=== PATIENT | female | born 1950 | race Caucasian/White ===

== ENCOUNTER 2016-06-04 09:32 | Inpatient (IN) | payer MEDICARE, MEDICAID ==
[~2016-06-04] VITALS: Ht 167.6 cm; Wt 87.6 kg
[2016-06-04] VITALS (10 sets, daily range): BP systolic 70–149; BP diastolic 43–74; PULSE 55–78; RESP 14–20; O2SAT 96–100
[~2016-06-04 09:32] MED LIST: ERYT1OIN7 LEFT_EYE
--- NOTE | 2016-06-04 09:38 | ED.REPORT ---
HPI-Stroke / CVA Jun 04, 2016 ED Provider: Dr. Kevin Damian M.D. A 66 year old female with a history including intellectual disability, hypertension, tremors, and many psychiatric disorders presents to the ED with intermittent slurred speech onset earlier this week and worsening this morning. Her caretakers checked on her at 0730 this morning and no deficits were noted but she was not ready to get up so the encounter was brief. When they returned to wake her up at 0815 they noticed her speech was slurred. EMS found her with a blood sugar of 130 but otherwise normal vital signs and no focal deficits. However, en route she developed right arm weakness. Her caretakers also report urinary and bowel incontinence, increased weakness, and several ground-level falls - most recently last night. She was placed on Keflex 8 days ago. The patient denies nausea, shortness of breath, cough, or vomiting. She is a poor historian. Nursing Notes Stated Complaint: SLURRED SPEECH Chief Complaint: Neuro Symptoms/ Deficits Nursing Notes Reviewed: Yes Allergies: Coded Allergies: Penicillins (Unverified Allergy, Severe, 03/18/09) risperidone (Unverified Allergy, Severe, 03/18/09) Scheduled Ascorbic Acid (Vitamin C) 1,000 Mg Tab.chew 1,000 MG PO DAILY (Reported) Benztropine Mesylate (Benztropine Mesylate) 2 Mg Tablet 2 MG PO BID (Reported) Cephalexin (Keflex) 500 Mg Capsule 500 MG PO QID (Reported) Cholecalciferol (Vitamin D3) (Vitamin D) 1,000 Unit Tablet 2,000 UNIT PO DAILY ( Reported) Docusate Sodium (Colace) 100 Mg Capsule 100 MG PO BID (Reported) Erythromycin Ophth Oint (Erythromycin Ophth Oint) 3.5 Gm Oint...g. 1 APPL LEFT_ EYE QID use for 7 days, apply to other eye if it gets red and mattered Ezetimibe (Zetia) 10 Mg Tablet 10 MG PO DAILY (Reported) Levothyroxine (Levothyroxine) 50 Mcg Tablet 50 MCG PO DAILY (Reported) Lisinopril / HCTZ 10-12.5 mg (Lisinopril / HCTZ 10-12.5 mg) 1 Each Tablet 1 EACH PO DAILY (Reported) Loratadine (Claritin) 10 Mg Capsule 10 MG PO DAILY (Reported) Multivitamin (Multi Vitamin Daily) 1 Each Tablet 1 EACH PO DAILY (Reported) Propranolol ER (Propranolol ER) 120 Mg Cap.sa.24h 120 MG PO DAILY (Reported) Quetiapine Fumarate (Quetiapine Fumarate) 400 Mg Tablet 400 MG PO HS (Reported) Simvastatin (Simvastatin) 40 Mg Tablet 40 MG PO HS (Reported) Ziprasidone (Ziprasidone) 60 Mg Capsule 120 MG PO DAILY (Reported) Ziprasidone (Ziprasidone) 80 Mg Capsule 80 MG PO BID (Reported) Scheduled PRN Acetaminophen (Acetaminophen) 500 Mg Tablet 1,000 MG PO Q4H PRN PRN For Fever ( Reported) Magnesium Hydroxide (Milk of Magnesia) 2,400 Mg/10 Ml Oral.susp 2,400 MG PO TID PRN PRN For Constipation (Reported) Miscellaneous Medications Polyethylene Glycol 3350 (Miralax) 17 Gm Powd.pack 17 GM PO (Reported) General Time Seen by Provider: 09:37 Chief Complaint Slurred speech Hx Obtained From: Patient, Irrigation Equipment Installer, EMS Unable to Obtain Hx: Mental status Arrived By: Ambulance Time last known well Unknown Sudden in Onset?: Yes Symptom Duration: Intermittent Progression Since Onset: Intermittent Severity: Current: No pain currently Severity: Maximum: No pain Associated with: Reports: Bladder dysfunction, Bowel dysfunction Pertinent Negative: Relieved by nothing Context: Immunizations Unknown Recent Healthcare: No recent doctor visit Similar Sx Previous: No Risk Factors Entirely unclear as to the onset of these symptoms and the symptomatology is not clearly consistent with acute CVA though further CVA workup may be indicated. For this reason I do not believe TPA is indicated. )( TPA Administration/Criteria Stroke Thrombolytic Therapy : TPA Considered: Yes TPA Administered Intravenously: No, not indicated NIH Stroke Scale Level of Consciousness: Alert and responsive (0) Ask Month & Age: 1 question right (1) Horizontal EO Movements: None (0) Visual Yi: No visual loss (0) Facial Palsy: Normal symmetry (0) Right Arm Motor Drift (10s): Drift, not touch bed (1) Left Arm Motor Drift (10s): Drift, not touch bed (1) Right Leg Motor Drift (5s): Some effort v gravity (2) Left Leg Motor Drift (5s): Some effort v gravity (2) Sensation (Arms/Legs/Face): No sensory loss (0) Language Aphasia: Severe, fragmented (2) Dysarthria: Slurring intelligible (1) Extinction/Inattention: No exctinct/inattent (0) NIHSS Score: 10 Time NIHSS Performed: 09:45 Date NIHSS Performed: Jun 04, 2016 Past Medical History Past Medical History Intellectual disability Hypertension Schizophrenia Impulse control disorder Tremors Hyperlipidemia Depression Hormone replacement therapy Anxiety disorder Hypothyroidism Idiopathic scoliosis Hx UTI Past Surgical History None reported Smoking History Unknown if Ever Smoker Social History Lives in private residence with skilled attendants 24/7 Ambulatory Status Independent Review of Systems Constitutional: Denies: Fever Respiratory: Denies: Non-productive cough, Shortness of breath GI: Denies: Nausea, Vomiting Neurologic: Reports: Bladder dysfunction, Bowel dysfunction, Slurred speech, Weakness Complete sys rev & neg: except as marked. Physical Exam Initial Vital Signs Vital Signs (First) Date Time Temp Pulse Resp B/P Pulse Ox O2 Delivery O2 Flow Rate FiO2 06/04/16 09:34 Room Air 06/04/16 10:13 34.4 59 17 90/61 96 Initial VS: Reviewed ENT: Conjunctiva normal, No scleral icterus Abdomen / GI: Soft, Non-tender Skin: Warm, Dry General/Constitutional: Awake, Alert Head / Eyes: Atraumatic, Normocephalic Neck: Supple, Full range of motion Respiratory / Chest: Breath sounds NL, Breath sounds = bilat, No respiratory distress Unremarkable breast exam - skin looks normal with no lumps on palpation Cardiovascular: Heart rate NL, Regular rhythm, Heart sounds NL Neurologic: No sensory deficits Speech: Positive: Slurred Sensory Deficit: Positive: Lower extremity bilat, Upper extremity bilat Lower Extremity / Pelvis / MS: Inspection NL, Full range of motion, Neurologic intact, Vascular intact Lower Ext Brief Normals: Hip R exam normal, Hip L exam normal Interpretation & Diagnostics Lab Results Interpretation Result Diagram: 06/04/16 0935 06/04/16 0935 Test 06/04/16 09:35 06/04/16 10:15 White Blood Count 7.3th/mm3 (3.8-10.1) Red Blood Count 4.56mil/mm3 (3.90-5.20) Hemoglobin 13.9g/dL (12.0-15.6) Hematocrit 42.2% (35.0-46.0) Mean Corpuscular Volume 92.5fL (81-100) Mean Corpuscular Hemoglobin 30.5pg (27.0-35.0) Mean Corpuscular Hemoglobin Concent 32.9% (32.0-37.0) Red Cell Distribution Width 14.3% (12.3-15.4) Platelet Count 138bil/L (150-400) Neutrophils (%) (Auto) 68.8% (40-74) Lymphocytes (%) (Auto) 18.3% (14-46) Monocytes (%) (Auto) 10.0% (4-12) Eosinophils (%) (Auto) 2.5% (0-5) Basophils (%) (Auto) 0.3% (0-3) Prothrombin Time 11.2sec (8.1-12.5) Prothromb Time International Ratio 1.05ratio Sodium Level 143mEq/L (134-144) Potassium Level 4.2mEq/L (3.5-5.2) Chloride Level 101mEq/L (97-108) Carbon Dioxide Level 30mmol/L (18-29) Blood Urea Nitrogen 21mg/dL (8-27) Creatinine 1.04mg/dL (0.57-1.00) Estimat Glomerular Filtration Rate 76mL/min (>59) Glucose Level 149mg/dL (60-99) Calcium Level 9.9mg/dL (8.5-10.1) Total Bilirubin 0.3mg/dL (0.0-1.2) Aspartate Amino Transf (AST/SGOT) 87U/L (0-50) Alanine Aminotransferase (ALT/SGPT) 86U/L (0-32) Alkaline Phosphatase 104U/L (25-165) Troponin T < 0.010ug/L (0.0-0.011) Total Protein 7.5g/dL (6.4-8.4) Albumin 3.7g/dL (3.4-5.0) Thyroid Stimulating Hormone (TSH) 4.720uIU/mL (0.450-4.500) Free Thyroxine 1.43ng/dL (0.82-1.77) Urine Color Yellow (YELLOW) Urine Appearance Hazy (CLEAR,HAZY) Urine pH 6.5 (5.0-8.0) Urine Specific Valier 1.015 (1.003-1.035) Urine Protein Negativemg/dL (NEG,TRACE) Urine Glucose (UA) Negativemg/dL (NEGATIVE) Urine Ketones Tracemg/dL (NEGATIVE) Urine Occult Blood Negative (NEGATIVE) Urine Nitrite Negative (NEGATIVE) Urine Bilirubin Negative (NEGATIVE) Urine Urobilinogen Normalmg/dL (NORMAL) Urine Leukocyte Esterase Trace (NEGATIVE) Urine RBC 0-2/hpf (0-2) Urine WBC 6-10/hpf (0-5) Urine Epithelial Cells Occasional/hpf (NONE-MOD) Urine Crystals None seen (NONE SEEN) Urine Bacteria Few/hpf (NONE-FEW) Urine Hyaline Casts Occasional/lpf (NONE) Urine Granular Casts None seen (NONE SEEN) Urine Waxy Casts None seen (NONE SEEN) Urine Red Blood Cell Casts None seen (NONE SEEN) Urine White Blood Cell Casts None seen (NONE SEEN) Urine Mucus None seen (None Seen) Urine Trichomonas None seen (NONE SEEN) Urine Yeast None (NONE SEEN) Urinalysis Comment None Urine Culture Reflexed Indicated ECG Interpretation ECG Interpretation: Sinus rhythm rate 59 Probable left ventricular hypertrophy Time: 10:26 Interpreted by: ED physician CT Head Interpretation IMPRESSION: 1. No acute intracranial disease process. 2. Findings telephoned to Dr. Kevin Damian on 06/04/2016 at 0952 hours. This study fulfills neurological imaging criteria for inclusion or exclusion of acute stroke therapies based on available published neurological guidelines. Dictated by: Lynn Friedman MD, PhD on 06/04/2016 at 9:55 Study: Head CT no contrast Interpretation / Wet Read by: Interpret - Radiologist Re-Eval/Medical Decision Source of Hx: Old records Re-Evaluation/Progress #1: Time of Eval: 10:30 Patient Status: Condition unchanged Re-Evaluation/Progress Note: Patient rechecked. Re-Evaluation/Progress #2: Time of Eval: 11:31 Patient Status: Condition improved Re-Evaluation/Progress Note: Discussed with patient's caretakers CT and lab results, diagnosis, and plan for admit. Patient and her caretakers agree with plan for care and all questions were addressed. Consultation : Referral / Consult Name: Reuben Felder MD Consulted With: Hospitalist Call Returned at: 12:03 Steward/Stewardess Economy Class: Agrees with eval, Agrees with plan, Accepts admit Counseled Regarding: Diagnosis, Lab results, Need for admission Patient Discharge & Departure Impression: Primary Impression: CVA (cerebral vascular accident) Additional Impression: Hypothermia Encounter type: initial encounter Qualified Code: T68.XXXA - Hypothermia, initial encounter Disposition: ADMITTED TO HOSPITAL Discharge Condition All VS Reviewed: Yes Condition: Stable Referrals: Bradly Shafer MD (PCP) Scribe Attestation Portions of this note were transcribed by Lynnette Hollingsworth. I, Dr. Damian, personally performed the history, physical exam, and medical decision-making; I reviewed and confirmed the accuracy of the information in the transcribed note. Signed by: Abundio Robles, 06/04/2016, 12:19 copies to: Bradly Shafer MD, Kirk H MD Jun 04, 2016 09:38 LYNNETTE HOLLINGSWORTH Jun 04, 2016 10:03
[2016-06-04 09:53] LABS: BASOPHILS % (AUTO) 0.3 % (0-3); EOSINOPHILS % (AUTO) 2.5 % (0-5); Mean Corpuscular Hemoglobin 30.5 pg (27.0-35.0); Mean Corpuscular Volume 92.5 fL (81-100); NEUTROPHILS % (AUTO) 68.8 % (40-74); Platelet Count 138 bil/L (150-400)
--- NOTE | 2016-06-04 09:57 | DRSVH ---
PROCEDURE: CT BRAIN (TPA) ([id number]) INDICATIONS: slurred speech TECHNIQUE: Noncontrast 4.5 mm thick angled axial sections acquired from the foramen magnum to the vertex, with c oronal reformats. COMPARISON: None. FINDINGS: Image quality: Excellent. CSF spaces: Basal cisterns are patent. No extra-axial fluid collections. The ventricles are symmet juan manuel in size and shape. Brain: No intracranial bleeds or masses. There is cerebral volume loss for age, with resultant vent ricular and sulcal prominence. There are periventricular and deep white matter chronic small vessel ischemic changes. There is intracranial internal carotid artery atherosclerosis. Skull and face: Calvarium and visualized facial bones appear intact, without suspicious lesions. Sinuses: Visualized sinuses and mastoids are clear. IMPRESSION: 1. No acute intracranial disease process. 2. Findings telephoned to Dr. Kevin Damian on 06/04/2016 at 0952 hours. This study fulfills neurological imaging criteria for inclusion or exclusion of acute stroke therapie s based on available published neurological guidelines. Dictated by: Lynn Friedman MD, PhD on 06/04/2016 at 9:55 Approved by: Lynn Friedman MD, PhD on 06/04/2016 at 9:55
[2016-06-04 10:02] LABS: INR 1.05 ratio
[2016-06-04 10:40] LABS: TROPONIN T < 0.010 ug/L (0.0-0.011)
[2016-06-04 10:52] LABS: APPEARANCE,URINE HAZY (CLEAR,HAZY); COLOR,URINE YELLOW (YELLOW); OCCULT BLOOD,URINE NEGATIVE (NEGATIVE); PH,URINE 6.5 (5.0-8.0); UROBILINOGEN,URINE NORMAL (NORMAL)
[2016-06-04] MEDS ORDERED: QUET400T35 PO (11:19)
[2016-06-04] MEDS ORDERED: MULT-1018 PO (11:19)
[2016-06-04] MEDS ORDERED: LORA10CA PO (11:19)
[2016-06-04] MEDS ORDERED: POLY17PO6 PO (11:19)
[2016-06-04] MEDS ORDERED: LEVO50TA6 PO (11:19)
[2016-06-04] MEDS ORDERED: LISI1TAB7 PO (11:19)
[2016-06-04] MEDS ORDERED: SIMV40TA5 PO (11:19)
[2016-06-04] MEDS ORDERED: CHOL100043 PO (11:24)
[2016-06-04] MEDS ORDERED: ASCO100089 PO (11:24)
[2016-06-04] MEDS ORDERED: DOCU-41 PO (11:24)
[2016-06-04] MEDS ORDERED: EZET10TA PO (11:24)
[2016-06-04] MEDS ORDERED: ZIPR60CA18 PO (11:24)
[2016-06-04] MEDS ORDERED: ZIPR80CA22 PO (11:24)
[2016-06-04] MEDS ORDERED: ACET-171 PO (11:25)
[2016-06-04] MEDS ORDERED: PROP120C2 PO (11:25)
[2016-06-04] MEDS ORDERED: MAGN800O PO (11:27)
[2016-06-04] MEDS ORDERED: BENZ2TAB7 PO (11:27)
--- NOTE | 2016-06-04 11:59 | NUR ---
Admit nurse: Pt brought to ED by home caregivers, admission information/medication list provided by caregivers. Pt has slurred/mumbled speech, has reported hx of multiple disabilities, appears to have some neuro delays. Admit completed, med rec completed, allergy sticker in place. Flu shot received fall 2015.
[2016-06-04] MEDS ORDERED: Ondansetron 2 mg/mL 2 mL Inj IVPUSH PRN ×2 (12:20→12:50)
[2016-06-04] MEDS ORDERED: Alum-Mag Hydrox-Simeth 30 mL Suspension PO PRN ×2 (12:20→12:50)
--- NOTE | 2016-06-04 12:33 | NUR ---
Evaluation completed. Please go to "Notes" then click on "Assessments and Notes" (bottom left corner of screen). Then select appropriate discipline tab on top of screen.
[2016-06-04] MEDS ORDERED: CEPH-512 PO (12:57)
--- NOTE | 2016-06-04 13:02 | NUR ---
admit pt is admitted from the ER for hypothermia and slurred speech. pt is transferred into bed by three hospital staff. pt denies pain or discomfort. caregivers tell me that she was found this am to have slurred speech after having two separate falls the day before. caregivers answered the admit questions for this RN. pt has some redness on her left foot that the caregivers state wasn't there earlier today. tele is started and med rec done. waiting on doctor's orders.
--- NOTE | 2016-06-04 13:08 | NUR ---
sexually inappropriate caregivers tell this RN that the pt can be inappropriate with male caregivers. "Mostly verbal but occasionally grabs caregivers"
--- NOTE | 2016-06-04 15:01 | NUR ---
MRI\ pt off the floor for MRI nail technician teacher reports pt is crying every time they attempt to put her into the machine. Tech will notify this RN if interventions are needed.
--- NOTE | 2016-06-04 16:01 | NUR ---
imaging results Bel (caregiver) would like to know the results of any imaging study. # [phone]
[2016-06-04] MEDS: Erythromycin 0.5% 3.5 Gm Ophthalmic Ointment LEFT_EYE SCH ×2 (16:24→21:34)
--- NOTE | 2016-06-04 16:27 | DRSVH ---
PROCEDURE: MRI STROKE PROTOCOL ([id number]) Pre- and post-contrast brain MRI, non-contrast brain MR angiogram, pre- and postcontrast neck MR sarah ogram INDICATIONS: Slurred speech, TIA/Stroke TECHNIQUE: Brain: Noncontrast axial T1 spin echo, axial T2 fast spin echo, sagittal and axial FLAIR, coronal T2 fast spin echo, axial gradient echo, axial diffusion and ADC through the brain. After the administr ation of contrast, axial 3D VIBE of the cranial vasculature and brain. Brain MRA: Non-contrast 3-D time of flight MR angiogram, with multiple qqdgres-ujzhfqqsu-mojxxpldrv (MIP) reformats performed. Neck MRA: Axial and sagittal TruFISP through the neck. Coronal dynamic MR angiogram during administ ration of contrast in the arterial and venous phases, with 3-dimenstional akbfhzz-wjkswufrw-msilhterc n (MIP) reformats constructed from subtraction images. COMPARISON: None. FINDINGS: Image quality: Limited by patient motion artifact BRAIN: CSF spaces: Ventricles are normal in shape. Mild, diffuse prominence of CSF space noted. Basal cist erns are patent. No extra-axial fluid collections. Brain: No intracranial bleeds or mass effects. Ramos-white matter interface is normal. Diffusion we ighted images show no acute ischemic insults. Scattered, punctate foci of increased T2/flair signal n oted in the periventricular and subcortical white matter tracts compatible with mild chronic microvas cular ischemic changes. Brainstem appears normal. Normal intravascular flow voids are present. No a bnormal intracranial enhancement. There is normal contrast enhancement of the dural sinuses. Skull and face: Calvarial marrow signal is normal. Orbits appear normal. Sinuses: Sinuses and mastoids are clear. BRAIN MR ANGIOGRAM: Anterior circulation: Intracranial internal carotid arteries are normal in size and enhancement. Th e flow within the paired anterior cerebral arteries is normal and symmetric. The flow within the mid dle cerebral arteries is normal and symmetric. The anterior communicating artery is seen. No stenos es, occlusions, or aneurysms. Posterior circulation: The visualized portions of the vertebral arteries demonstrate normal caliber, and join to form a normal appearing basilar artery. The flow within the posterior cerebral arteries is normal and symmetric. Posterior cerebral arteries have origins which is congenital anatomic variant. No stenoses, occlusions, or aneurysms. NECK MR ANGIOGRAM: Carotids: Great vessels demonstrate a conventional anatomy as they arise from the aortic arch. The origins of the common carotid arteries appear patent. The calibers and courses of both common caroti d arteries are normal. Minimal atherosclerotic irregularity noted in the proximal internal carotid ar teries bilaterally. Posterior circulation: Origins of the vertebral arteries are poorly visualized due to motion artifact . The source images suggest the origins of the vertebral arteries are patent without significant athe rosclerotic stenosis. More superior portions of both vertebral arteries demonstrate normal course and caliber, and join to form a normal appearing basilar artery. Miscellaneous: Subclavian arteries appear patent. Pre-contrast images through the neck show no soft tissue abnormalities. IMPRESSION: BRAIN MRI: 1. No acute intracranial disease process. 2. No areas of acute or chronic infarction. 3. Mild, diffuse volume loss. 4. Mild periventricular and subcortical white matter chronic microvascular ischemic changes. 5. Image quality by patient motion artifact. BRAIN MR ANGIOGRAM: 1. No hemodynamically significant intracranial vascular stenosis or intracranial vascular occlusion. 2. Image quality limited by patient motion artifact. NECK MR ANGIOGRAM: 1. Less than 50% stenosis of the proximal internal carotid arteries bilaterally. 2. Origins of the vertebral arteries poorly visualized secondary to artifact. Origins of the arteries appear grossly patent on the source images. The estimate of stenosis included in the report of the imaging study was calculated using the NASCET method Dictated by: Lynn Friedman MD, PhD on 06/04/2016 at 16:26 Approved by: Lynn Friedman MD, PhD on 06/04/2016 at 16:26
--- NOTE | 2016-06-04 17:28 | PCM.HPMED ---
Subjective Date of Service Jun 04, 2016 Primary Provider: Admitting Physician: Reuben Felder MD Primary Care Physician: Bradly Shafer MD Attending Physician: Reuben Felder MD Chief Complaint: Slurred speech History of Present Illness: Patient is a 66-year-old female with MHx significant for intellectual disability , hypertension, hyperlipidemia, hypothyroidism, and multiple psych disorder presented with slurred speech and weakness. Per her sitter, patient has been unsteady on her feet for the past months. She slumped on her knee while she tried to push forward on her 4 wheel walker yesterday evening. There were no loss of consciousness, no head trauma reported. Due to her significant weight however, patient was made comfortable with blankets on the floor. She slept through the night. Sitter noticed this morning however that patient had a facial droop with slurred speech beyond baseline, thus brought her to the ED. Sitter admits to observing patient's unsteady gait, and falling on her knees >3x/week. Patient fell once due to misplacing her arms on table chair. Sitter denies any histories of urinary/ bowel incontinence. Patient herself denies any pain or discomfort. On interview, patient answer appropriately on some questions while mumbles on others. She does not consistently follows commands for the full neurological examination today. Review of Systems: A comprehensive review of systems was conducted with the patient and found to be negative except as above in the History of Present Illness. Allergies Coded Allergies: Penicillins (Unverified Allergy, Severe, 03/18/09) risperidone (Unverified Allergy, Severe, 03/18/09) Home Medications Benztropine 2 mg twice a day Level thyroxine 50 MCG once daily Lisinopril HCTZ 10 mg 12 mg daily Loratadine 10 mg daily Multivitamin daily Polyethylene glycol 17 mg daily Seroquel 400 mg daily Simvastatin 40 mg daily Vitamin C on thousand milligrams daily Vitamin D 2000 units daily Zetia 10 mg daily Geodon 120 mg daily Docusate sodium 100 mg twice a day Propranolol 120 mg daily Acetaminophen/Tylenol 1000 mg when necessary Milk of magnesia 10 mg milliliter when necessary PMH Medical history obtained from medical records as patient is an unreliable historian Intellectual disability Hypertension Schizophrenia Impulse control disorder Essential tremors Hyperlipidemia Depression Hormone replacement therapy Anxiety disorder Hypothyroidism Idiopathic scoliosis Surgical History Unable to obtain due to patient's condition Family History Unable to obtain due to patient's condition Social History Occupation: unable to obtain Hx Alcohol Use: No Hx Substance Use: No Smoking Status: Unknown if Ever Smoker Exam Vital Signs Vital Sign - Last Date Time Temp Pulse Resp B/P Pulse Ox O2 Delivery O2 Flow Rate FiO2 06/04/16 16:42 58 20 83/55 98 Room Air 06/04/16 12:11 35.6 Exam General: No acute distress, HEENT: Normocephalic, atraumatic. External ears without defect. Pupils equal, round, and reactive to light and accommodation. Anicteric sclerae, moist conjunctivae, and no lid lag. No tongue deviation Neck: Supple with full range of motion. No jugular venous distension. No bruits. No lymphadenopathy or thyromegaly. Cardiovascular: Regular rate and rhythm with no murmurs, rubs, or gallops appreciated Pulmonary: Clear to auscultation bilaterally with no crackles, wheezes, or rhonchi. Normal respiratory effort with no use of accessory muscles. Abdomen: Bowel tones present. Soft, nontender, nondistended. No hepatosplenomegaly or masses appreciated. Extremities: No clubbing, cyanosis, edema, or lymphadenopathy appreciated. Skin: Normal temperature, turgor, and texture; no rash, ulcers, or subcutaneous nodules appreciated. Neurological: Cranial nerves grossly intact. Normal muscle strength, tone, and bulk. Patient moves on all 4 extremity Psychiatric: Intermittent slurred speech, intermittently mumbles,mild receptive aphasia Lab and Diagnostics Result Diagram: 06/04/16 0935 06/04/16 0935 X-Rays, CTs and MRIs PROCEDURE: CT BRAIN (TPA) INDICATIONS: slurred speech IMPRESSION: 1. No acute intracranial disease process. 2. Findings telephoned to Dr. Kevin Damian on 06/04/2016 at 0952 hours. This study fulfills neurological imaging criteria for inclusion or exclusion of acute stroke therapies based on available published neurological guidelines. Dictated by: Lynn Friedman MD, PhD on 06/04/2016 at 9:55 PROCEDURE: MRI STROKE PROTOCOL Pre- and post-contrast brain MRI, non-contrast brain MR angiogram, pre- and postcontrast neck MR angiogram INDICATIONS: Slurred speech, TIA/Stroke IMPRESSION: BRAIN MRI: 1. No acute intracranial disease process. 2. No areas of acute or chronic infarction. 3. Mild, diffuse volume loss. 4. Mild periventricular and subcortical white matter chronic microvascular ischemic changes. 5. Image quality by patient motion artifact. BRAIN MR ANGIOGRAM: 1. No hemodynamically significant intracranial vascular stenosis or intracranial vascular occlusion. 2. Image quality limited by patient motion artifact. NECK MR ANGIOGRAM: 1. Less than 50% stenosis of the proximal internal carotid arteries bilaterally. 2. Origins of the vertebral arteries poorly visualized secondary to artifact. Origins of the arteries appear grossly patent on the source images. The estimate of stenosis included in the report of the imaging study was calculated using the NASCET method Dictated by: Lynn Friedman MD, PhD on 06/04/2016 at 16:26 Assessment & Plan Patient is a 66-year-old female with MHx significant for intellectual disability , hypertension, hyperlipidemia, hypothyroidism, and multiple psych disorder presented with slurred speech and weakness. Admitted for TIA/stroke rule out. Possible TIA/stroke - Mild expressive aphasia, slurred speech, frequent falls, discoordination, bradycardia, hypotension, and hypothermia - Initial CT brain and subsequent MRA without any identifiable infarction - Likely TIA. However, concern for cerebellar/brain stem infarct - Recommend MRI of brain and brainstem in the a.m. should symptoms unimproved - Echocardiogram pending, telemetry place on - Aspirin and a traverse an daily. Hypothermia, present on admission, active - Initial rectal temperature was 34.4 mL - Likely due to overnight sleep on the floor Hypotension, as admission, active - Likely secondary to medication - Holding lisinopril/HCTZ, propranolol unknown Frequent fall, present on admission, active - Second to likely hypotension, however cannot rule out cerebellar or brainstem infarct - Physical therapy ordered Schizophrenia, present on admission, stable - Seroquel 4 mg daily a 7 PM Impulse disorder, present on admission, presumed stable - Geodon 80 mg 8 AM and 7 PM, 120 mg at 5 PM daily Dyslipidemia, present on admission, presumed stable - Atorvastatin nightly Hypothyroidism, present on admission, stable -Level thyroxine 50 MCG daily Movement disorder, present on admission, presumed stable - Benztropine 2 mg twice a day Patient Status: Patient is admitted under observation status with expected length of stay LESS than 2 midnights due to severity of presenting symptoms, risk of adverse event, and complexity of treatment plan. VTE Prophylaxis: Sub-Q Heparin (Unfractionated) VTE Mechanical Devices: Venous Foot Pump Resuscitation Status: CPR: Attempt Resuscitation Attending Statement The patient was seen and examined together with Dr. Jacoby Zuniga on 06/04/2016 and I agree with the history, exam and plan as outlined in the note above. Jacoby Zuniga DO Jun 04, 2016 17:28 Reuben Felder MD Jun 05, 2016 10:35
[2016-06-04] MEDS: Heparin 5,000 Unit/mL Inj SUBQ SCH (17:37)
[2016-06-04] MEDS ORDERED: 0.9% Sodium Chloride 1,000 ML IV ONE ×2 (20:50→22:50)
[2016-06-04] MEDS: QUEtiapine 300 MG, QUEtiapine 100 MG PO SCH ×2 (21:34)
[2016-06-05] VITALS (8 sets, daily range): BP systolic 80–120; BP diastolic 49–76; PULSE 62–89; RESP 18–20; O2SAT 93–95
[2016-06-05] MEDS: 0.9% Sodium Chloride 1,000 ML IV SCH ×3 (00:45→17:00)
[2016-06-05] MEDS: Heparin 5,000 Unit/mL Inj SUBQ SCH ×3 (00:45→17:01)
--- NOTE | 2016-06-05 06:19 | NUR ---
BP/Pain/Neuro Pt's SBP at beginning of shift was 70, MD called and 1 L bolus over 1hr given, SBP improved to 78, another bolus given and SBP increased to 82, MD aware. Pt c/o of intermittent mid to L sided abdominal pain but more so when she is turned and moved, MD aware. Pt screams when she is being touched or moved. Brother states that due to pt's developmental delay it is sometimes difficult to ascertain what is going on with pt since her reports are not always reliable. Pt's brother also states that her fallings might be self inflicted and might be due to attention seeking behavior. Pt had some personal losses lately ( of one brother and mother) which pt's brother thinks that pt has difficulty coping with. Addendum: 06/05/16 at 0629 by MEREDITH MEDLEY RN Neuro Pt has slurred speech and is sometimes difficult to understand which per brother is not baseline, otherwise neuros WNL.
[2016-06-05 07:23] LABS: BASOPHILS % (AUTO) 0.3 % (0-3); EOSINOPHILS % (AUTO) 2.3 % (0-5); MONOCYTES % (AUTO) 12.2 % (4-12); Mean Corpuscular Hemoglobin 29.9 pg (27.0-35.0); NEUTROPHILS % (AUTO) 58.2 % (40-74); Platelet Count 143 bil/L (150-400)
[2016-06-05] MEDS: Erythromycin 0.5% 3.5 Gm Ophthalmic Ointment LEFT_EYE SCH ×4 (08:27→20:08)
[2016-06-05] MEDS ORDERED: 0.9% Sodium Chloride 1,000 ML IV ONE (10:10)
[2016-06-05] MEDS: Polyethylene Glycol (PEG) 17 Gm Powder PO PRN (10:24)
--- NOTE | 2016-06-05 10:32 | NUR ---
Evaluation completed. Please go to "Notes" then click on "Assessments and Notes" (bottom left corner of screen). Then select appropriate discipline tab on top of screen.
--- NOTE | 2016-06-05 14:22 | DRSVH ---
[facility] [address] [place] [address] Echocardiogram Report Name: ELIANE GRIFFITHS Study Date: 06/05/2016 Height: 66 in Hospital Exam Location: [facility] Weight: 193 lb Gender: Female BSA: 2.0 m2 : 1950 Age: 66 yrs BP: 80/49 mmHg Reason For Study: CVA Ordering Physician: Performed By: Nora Stark Referring Physician: INDU SHANKAR Interpretation Summary 1. Normal left ventricular size, wall thickness and systolic function with an estimated EF of 60-65% 2. Grossly normal right ventricular size and systolic function. 3. No evidence for valvular pathology. There is no old study for comparison Procedure: A two-dimensional transthoracic echocardiogram with color flow and Doppler was performed. The study quality was technically limited. There is no prior echocardiogram noted for this patient. There is only limited view from the apical window. The patient was in normal sinus rhythm during the exam. Left Ventricle: The left ventricle is normal in size. There is normal left ventricular wall thickness. The ejection fraction is estimated to be 60-65%. There are no obvious focal wall motion abnormalities noted but poor endocardial definition reduces the sensitivity for the detection of such. Right Ventricle: The right ventricle grossly appears normal in size with probable normal systolic function. Atria: The left atrial size is normal. The right atrium grossly appears normal in size. Limited images of the interatrial septum. Mitral Valve: The mitral valve is grossly normal. There is no mitral regurgitation noted. Aortic Valve: The aortic valve is trileaflet. The aortic valve opens well. There is no aortic regurgitation. Tricuspid Valve: The tricuspid valve leaflets are thin and pliable. There is mild tricuspid regurgitation. The right ventricular systolic pressure is estimated at 28 mmHg assuming a right atrial pressure of 3 mm Hg. Pulmonic Valve: The pulmonic valve is normal in structure and function. There is trace pulmonic regurgitation. Great Vessels: The aortic root is normal size. The dimensions of the ascending aorta are normal. The IVC is of normal diameter and collapses greater than 50% with a sniff. This suggests a low right atrial pressure of 3 mm Hg. Pericardium/ Pleura There is no pericardial effusion. There is no pleural effusion. MMode/2D Measurements & Calculations LVIDd: 4.2 cm LA dimension Ao root diam LV de oliveira. diameter/BSA LVIDs: 2.6 cm (cm/m^2): 2.1 FS: 37.2 % IVC diam Aortic Jxn IVSd: 0.97 cm : 1.3 cm LVPWd: 0.81 cm asc Aorta Diam: 3.0 cm LV sys. diameter/BSA (cm/m^2): 1.3 Doppler Measurements & Calculations MV E max enrique MV E/A: 1.4 TR max enrique MV dec time : 93.1 cm/sec : 253.4 cm/sec : 0.17 sec MV A max enrique TR max PG : 68.1 cm/sec : 25.7 mmHg MV P1/2t: 52.8 msec PA V2 max : 74.9 cm/sec PA mean PG PA Accel Time MV P1/2t max enrique PA V2 mean : 53.7 cm/sec MVA(P1/2t): 4.2 cm2 Reading Physician:02:21 PM
--- NOTE | 2016-06-05 14:52 | NUR ---
BP/ Pt SBP high 90s to low 100s, NSR 80s. No void as of 1400, BUS >600cc. I&O cath completed, 750cc drained from bladder. Pt home caregiver at bedside and advocates for pt needs.
--- NOTE | 2016-06-05 15:20 | NUR ---
Case Management D: Observation information provided and explained to care-rivers and lakes leverman at bedside, (Roxie). She will provide it to programmer analyst health it. I asked about a DPOA, and Roxie did not know if pt had one, or who it is.
--- NOTE | 2016-06-05 16:36 | NUR ---
Social Work-initial assessment: Data& assessment:See initial assessment. Pt is 66 y/o female who was admitted on 06/04/16 for CVA per H&P. Pt's insurance is [employer] and PCP is Bradly Shafer MD. EMR Reviewed. JORDON spoke with pt's community health program representative Bel who states pt lives a in home where she has 24/7 care. Pt uses a fww at baseline. Pt has no HH Or SNF history. Bel wonders if pt will need SNF. JORDON explained currently pt is under obs and will not qualify for SNF. JORDON discussed HH with Bel. Bel would like to see what MD has to say and have SW check back in. SW to follow up again tomorrow. JORDON will continue to follow. Plan:Pt to likely discharge back to home with 24/7 care. R/O HH services vs SNF. JORDON will continue to follow. MAYDA Berg Addendum: 06/05/16 at 1640 by EAMON SKELTON Amended: Links added.
--- NOTE | 2016-06-05 17:52 | PCM.PNMED ---
Subjective Date of Service Jun 05, 2016 Subjective Sarah Beth Turner reports feeling more tired than usual, otherwise she does not have any complaints. She went though much of the day without urinating, thus a bladder scan was done showing >500mL of urine, a straight catheter was used to drain pale, translucent urine. Exam Vital Signs Vital Sign - Last Date Time Temp Pulse Resp B/P Pulse Ox O2 Delivery O2 Flow Rate FiO2 06/05/16 13:24 36.8 83 20 103/69 95 Room Air Intake and Output 06/04/16 06/04/16 06/05/16 Cumulative From/Thru 14:59 22:59 06:59 06/04/16 13:00 - 06/05/16 05:41 Intake Total 650 ml 2524 ml 3174 ml Output Total 0 ml 2 ml 2 ml Balance 650 ml 2522 ml 3172 ml Intake Oral 650 ml 150 ml 800 ml IV Total 2374 ml 2374 ml Output Urine Total 0 ml 2 ml 2 ml # Bowel Movements 0 1 1 Exam General: Obese female resting comfortably in bed this morning with warming blankets an her entire body distal to the neck. No acute distress. Has some difficulty with following commands, able to cooperate with significant encouragement. HEENT: Normocephalic, atraumatic. PERRLA Anicteric sclerae, moist mucus membranes. Poor dentition without oral abscess present. Neck: Supple with full range of motion. No JVD. Cardiovascular: Regular rate and rhythm without murmur, rub, or gallop appreciated Pulmonary: Clear to auscultation bilaterally without crackles, wheezes, or rhonchi. Normal respiratory effort without use of accessory muscles. Abdomen: Bowel tones present. Soft, nontender, nondistended. No hepatosplenomegaly or masses appreciated. Extremities: No clubbing, cyanosis, or edema Skin: Normal temperature, turgor, and texture; no rash. Neurological: Normal muscle strength, tone, and bulk. Patient moves on all 4 extremities with ease. Normal speech. Psychiatric: Intermittently mumbles, poor eye contact unless specifically directed to give eye contact. IVs and Medications Medications Reviewed: Medications were reviewed in detail Lab and Diagnostics Result Diagram: 06/05/1645 06/05/1645 X-Rays, CTs and MRIs PROCEDURE: CT BRAIN (TPA) IMPRESSION: 1. No acute intracranial disease process. 2. Findings telephoned to Dr. Kevin Damian on 06/04/2016 at 0952 hours. This study fulfills neurological imaging criteria for inclusion or exclusion of acute stroke therapies based on available published neurological guidelines. Dictated by: Lynn Friedman MD, PhD on 06/04/2016 at 9:55 PROCEDURE: MRI STROKE PROTOCOL Pre- and post-contrast brain MRI, non-contrast brain MR angiogram, pre- and postcontrast neck MR angiogram INDICATIONS: Slurred speech, TIA/Stroke IMPRESSION: BRAIN MRI: 1. No acute intracranial disease process. 2. No areas of acute or chronic infarction. 3. Mild, diffuse volume loss. 4. Mild periventricular and subcortical white matter chronic microvascular ischemic changes. 5. Image quality by patient motion artifact. BRAIN MR ANGIOGRAM: 1. No hemodynamically significant intracranial vascular stenosis or intracranial vascular occlusion. 2. Image quality limited by patient motion artifact. NECK MR ANGIOGRAM: 1. Less than 50% stenosis of the proximal internal carotid arteries bilaterally. 2. Origins of the vertebral arteries poorly visualized secondary to artifact. Origins of the arteries appear grossly patent on the source images. The estimate of stenosis included in the report of the imaging study was calculated using the NASCET method Dictated by: Lynn Friedman MD, PhD on 06/04/2016 at 16:26 Cardiac Echo Impressions Transthoracic Echo 06/05/16: Interpretation Summary 1. Normal left ventricular size, wall thickness and systolic function with an estimated EF of 60-65% 2. Grossly normal right ventricular size and systolic function. 3. No evidence for valvular pathology. Assessment & Plan Sarah Beth Turner is a 66yo female with intellectual disability, hypertension, hyperlipidemia, hypothyroidism, and multiple psych disorders on high dose Geodon who presented with slurred speech and weakness that her caregiver noticed. She was found to be hypothermic and admitted for CVA evaluation. 1. Possible TIA vs Altered Mental Status secondary to Geodon Toxicity - Neurological examination at her baseline per caregiver who has stayed with the patient through most of the day - Initial CT brain and subsequent MRA without any identifiable infarction or hemorrhage - Likely TIA, though it is possible that her abnormal speech may have been due to hypothermia - Aspirin daily - Atorvastatin qHS - Stop Geodon now as pt has been on excessive doses and this may be the underlying problem causing #2 and #3 2. Hypothermia, present on admission, resolved - Initial rectal temperature was 34.4, now 36.8 - Hypothermia is a documented adverse effect of Geodon and the patient has been taking high doses of this medication, thus it is possible her hypothermia and weakness were due to geodon use. - Actively warmed and continuing to receiving warming pads to maintain a normal body temperature 3. Hypotension, as admission, active - Likely secondary to toxic effect of Geodon - Holding lisinopril/HCTZ - NS 1L IV bolus given today 4. Frequent fall, present on admission, active - Second to likely hypotension, however cannot rule out cerebellar or brainstem infarct - Physical therapy ordered 5. Schizophrenia, present on admission, stable - Seroquel 4 mg daily a 7 PM 6. Impulse disorder, present on admission, presumed stable - Discontinued Geodon given #2 above - Discuss with her outpatient prescriber, Dr Mcduffie to see what alternative therapy he would like her to be started on 7. Dyslipidemia, present on admission, presumed stable - Atorvastatin as above 8. Hypothyroidism, present on admission, stable - TSH is very mildly elevated and free T4 is normal - No change to her levothyroxine dose at this time 9. Movement disorder, present on admission, presumed stable - Benztropine 2 mg twice a day 10. Chronic constipation - Scheduled miralax daily VTE Prophylaxis: Sub-Q Heparin (Unfractionated) VTE Mechanical Devices: Intermittant Pneumatic CD Resuscitation Status: CPR: Attempt Resuscitation Attending Statement The patient was seen and examined together with Dr. Rodriguez on 06/05/2016 and I agree with the history, exam and plan as outlined in the note above. An Rodriguez DO Jun 05, 2016 17:52 Reuben Felder MD Jun 06, 2016 12:16
[2016-06-05] MEDS: QUEtiapine 300 MG, QUEtiapine 100 MG PO SCH ×2 (20:06)
--- NOTE | 2016-06-05 23:37 | NUR ---
P: At 1999, bladder scan showed 300ml, pt reported mild discomfort. Rechecked at 2230, 571ml. I: Paged , ordered in and out. Cath voided 700ml. Pt tolerated fairly with some yelling. E: Will reassess bladder at 0400 rounds and continuously assess for bladder distension and discomfort.
[2016-06-06] VITALS (7 sets, daily range): BP systolic 101–175; BP diastolic 66–107; PULSE 76–89; RESP 16–20; O2SAT 93–100
[2016-06-06] MEDS: Heparin 5,000 Unit/mL Inj SUBQ SCH ×3 (00:24→16:09)
[2016-06-06] MEDS: 0.9% Sodium Chloride 1,000 ML IV SCH ×2 (04:30→13:57)
[2016-06-06] MEDS: Erythromycin 0.5% 3.5 Gm Ophthalmic Ointment LEFT_EYE SCH ×4 (05:28→20:29)
[2016-06-06 06:19] LABS: BASOPHILS % (AUTO) 0.3 % (0-3); MONOCYTES % (AUTO) 12.3 % (4-12); Mean Corpuscular Hemoglobin 30.6 pg (27.0-35.0); Mean Corpuscular Volume 94.6 fL (81-100); NEUTROPHILS % (AUTO) 44.8 % (40-74); Platelet Count 158 bil/L (150-400)
[2016-06-06] MEDS: Polyethylene Glycol (PEG) 17 Gm Powder PO PRN (10:26)
--- NOTE | 2016-06-06 11:49 | NUR ---
Social Work-continued d/c planning: Data:EMR Reviewed. Pt is on day 2 of hospitalization for CVA per H&P. Pt is not medically stable, anticipate likely tomorrow. JORDON placed a call to pt's sas clinical programmer Bel to further discuss. Bel feels like they should be able to have pt return home with caregivers at discharge. JORDON discussed options of HH services. Bel states she needs to call her boss to further discuss and then will call SW back. JORDON provided phone number. JORDON will continue to follow. Assessment:Pt who would benefit from HH. Plan:Pt to discharge back home with 13/12 care. Pt's sas clinical programmer to call SW back regarding HH services. JORDON will continue to follow. MAYDA Berg Addendum: 06/06/16 at 1544 by EAMON SKELTON SS JORDON received a call back from Bel and she is in agreement with HH services. JORDON provided her with choice list, no agency preference. JORDON referred to [facility] calendar and made referral to [facility] for RN,PT, and OT, access given. F2F in folder. JORDON will continue to follow. MAYDA Berg
--- NOTE | 2016-06-06 13:50 | PCM.PNMED ---
Subjective Date of Service Jun 06, 2016 Subjective Urinary retention overnight, straight cath. No new complaints Today, patient is at baseline per per sitter/manufacturing shift supervisor Bel Mcdowell. Exam Vital Signs Vital Sign - Last Date Time Temp Pulse Resp B/P Pulse Ox O2 Delivery O2 Flow Rate FiO2 06/06/16 12:00 Room Air 06/06/16 10:30 82 06/06/16 09:25 36.8 18 107/71 94 Intake and Output 06/05/16 06/05/16 06/06/16 Cumulative From/Thru 15:00 23:00 07:00 06/04/16 13:00 - 06/06/16 05:36 Intake Total 1942 ml 991 ml 6107 ml Output Total 1500 ml 700 ml 2202 ml Balance 442 ml 291 ml 3905 ml Intake Oral 350 ml 0 ml 1150 ml IV Total 1592 ml 991 ml 4957 ml Output Urine Total 1500 ml 700 ml 2202 ml # Bowel Movements 0 1 Exam General: No acute distress, HEENT: Normocephalic, atraumatic. External ears without defect. Pupils equal, round, and reactive to light and accommodation. Anicteric sclerae, moist conjunctivae, and no lid lag. No tongue deviation Neck: Supple with full range of motion. No jugular venous distension. No bruits. No lymphadenopathy or thyromegaly. Cardiovascular: Regular rate and rhythm with no murmurs, rubs, or gallops appreciated Pulmonary: Clear to auscultation bilaterally with no crackles, wheezes, or rhonchi. Normal respiratory effort with no use of accessory muscles. Abdomen: Bowel tones present. Soft, nontender, nondistended. No hepatosplenomegaly or masses appreciated. Extremities: No clubbing, cyanosis, edema, or lymphadenopathy appreciated. Skin: Normal temperature, turgor, and texture; no rash, ulcers, or subcutaneous nodules appreciated. Neurological: Cranial nerves grossly intact. Normal muscle strength, tone, and bulk. Patient moves on all 4 extremity Psychiatric: Alert and oriented 3, no slurred speech IVs and Medications Medications Reviewed: Medications were reviewed in detail Lab and Diagnostics Result Diagram: 06/06/16 0550 06/06/16 0550 X-Rays, CTs and MRIs PROCEDURE: CT BRAIN (TPA) IMPRESSION: 1. No acute intracranial disease process. 2. Findings telephoned to Dr. Kevin Damian on 06/04/2016 at 0952 hours. This study fulfills neurological imaging criteria for inclusion or exclusion of acute stroke therapies based on available published neurological guidelines. Dictated by: Lynn Friedman MD, PhD on 06/04/2016 at 9:55 PROCEDURE: MRI STROKE PROTOCOL Pre- and post-contrast brain MRI, non-contrast brain MR angiogram, pre- and postcontrast neck MR angiogram INDICATIONS: Slurred speech, TIA/Stroke IMPRESSION: BRAIN MRI: 1. No acute intracranial disease process. 2. No areas of acute or chronic infarction. 3. Mild, diffuse volume loss. 4. Mild periventricular and subcortical white matter chronic microvascular ischemic changes. 5. Image quality by patient motion artifact. BRAIN MR ANGIOGRAM: 1. No hemodynamically significant intracranial vascular stenosis or intracranial vascular occlusion. 2. Image quality limited by patient motion artifact. NECK MR ANGIOGRAM: 1. Less than 50% stenosis of the proximal internal carotid arteries bilaterally. 2. Origins of the vertebral arteries poorly visualized secondary to artifact. Origins of the arteries appear grossly patent on the source images. The estimate of stenosis included in the report of the imaging study was calculated using the NASCET method Dictated by: Lynn Friedman MD, PhD on 06/04/2016 at 16:26 Cardiac Echo Impressions Transthoracic Echo 06/05/16: Interpretation Summary 1. Normal left ventricular size, wall thickness and systolic function with an estimated EF of 60-65% 2. Grossly normal right ventricular size and systolic function. 3. No evidence for valvular pathology. Assessment & Plan Sarah Beth Turner is a 66yo female with intellectual disability, hypertension, hyperlipidemia, hypothyroidism, and multiple psych disorders on high dose Geodon who presented with slurred speech and weakness that her caregiver noticed. She was found to be hypothermic and admitted for CVA evaluation. 1. Altered Mental Status - TIA rule out, Initial CT brain and subsequent MRA without any identifiable infarction or hemorrhage - Old Geodon, Very possible Geodon toxicity causes neurological deficit due to the high dose and a lipophilic nature - Neurological examination at her baseline per caregiver - Likely TIA, though it is possible that her abnormal speech may have been due to hypothermia - Continue the whole Geodon, - Continue aspirin and atorvastatin qd 2. Hypothermia, present on admission, resolved - Initial rectal temperature was 34.4, now 36.8 - Hypothermia is a documented adverse effect of Geodon and the patient has been taking high doses of this medication, thus it is possible her hypothermia and weakness were due to geodon use. - Actively warmed and continuing to receiving warming pads to maintain a normal body temperature 3. Hypotension, as admission, active - Likely secondary to toxic effect of Geodon - Holding lisinopril/HCTZ - NS 1L IV bolus given today 4. Frequent fall, present on admission, active - Second to likely hypotension, however cannot rule out cerebellar or brainstem infarct - Physical therapy ordered 5. Schizophrenia, present on admission, stable - Seroquel 4 mg daily a 7 PM 6. Impulse disorder, present on admission, presumed stable - Discontinued Geodon given #2 above - Discuss with her outpatient prescriber, Dr Mcduffie to see what alternative therapy he would like her to be started on 7. Dyslipidemia, present on admission, presumed stable - Atorvastatin as above 8. Hypothyroidism, present on admission, stable - TSH is very mildly elevated and free T4 is normal - No change to her levothyroxine dose at this time 9. Movement disorder, present on admission, presumed stable - Benztropine 2 mg twice a day 10. Chronic constipation - Scheduled miralax daily Urinary retention, not present on admission, resolving - Javier catheter placed on. Disposition: Anticipate patient will be discharged tomorrow 06/07/2016. We will need to contact PCP Dr. Shafer for alternatives to Geodon. VTE Prophylaxis: Sub-Q Heparin (Unfractionated) VTE Mechanical Devices: Intermittant Pneumatic CD Resuscitation Status: CPR: Attempt Resuscitation Jacoby Zuniga DO Jun 06, 2016 13:50
--- NOTE | 2016-06-06 14:56 | NUR ---
PVR Pt up to BSC, voiding 150-200 each time. PVR assessed and result 923ml. Pt denies any sensation/discomfort, abd mildly distended. I&O cath done using sterile technique, 700ml of urine drained from bladder.
--- NOTE | 2016-06-06 16:03 | NUR ---
Case management D: Inpatient as of today.
--- NOTE | 2016-06-06 16:15 | NUR ---
Fields Rec'd order to place a fields due to retention and LEONARD. Placed a 16F fields using sterile procedure, pt tolerated well. After placing fields, 600ml of yellow urine drained.
[2016-06-06] MEDS: QUEtiapine 300 MG, QUEtiapine 100 MG PO SCH ×2 (20:29)
[2016-06-07 00:09] VITALS: BP 147/80; PULSE 86; RESP 20; O2SAT 93
[2016-06-07 00:10] VITALS: PULSE 78
[2016-06-07] MEDS: Heparin 5,000 Unit/mL Inj SUBQ SCH ×3 (01:18→16:30)
[2016-06-07 05:27] VITALS: BP 129/84; PULSE 83; RESP 18; O2SAT 98
--- NOTE | 2016-06-07 06:00 | NUR ---
NOC activity Pt pleasant and cooperative with care. Denies chest pain, sob, n/v and abd discomfort. HS meds administered as scheduled. VSS. Hourly rounding done, pt has slept most of the night.
[2016-06-07] MEDS: Erythromycin 0.5% 3.5 Gm Ophthalmic Ointment LEFT_EYE SCH ×3 (06:33→16:30)
[2016-06-07] MEDS: 0.9% Sodium Chloride 1,000 ML IV SCH ×2 (06:34→16:30)
[2016-06-07 10:16] VITALS: BP 124/84; PULSE 80; RESP 20; O2SAT 97
[2016-06-07 11:18] VITALS: PULSE 80
[2016-06-07] MEDS: Polyethylene Glycol (PEG) 17 Gm Powder PO PRN (12:49)
[2016-06-07] MEDS ORDERED: LAMO25TA PO (14:41)
--- NOTE | 2016-06-07 14:49 | PCM.DIMED ---
MichaelAn DO 06/07/16 1354: Discharge Instructions Date of Service Jun 07, 2016 Dates of Hospitalization Jun 04, 2016 at 12:16 Discharge Diagnosis Discharge Diagnosis Altered Mental Status Hypothermia, present on admission, resolved - Initial rectal temperature was 34.4, now 36.8 - Secondary to Geodon Hypotension, as admission, active Frequent fall, present on admission, active Schizophrenia, present on admission, stable Impulse disorder, present on admission, presumed stable Dyslipidemia, present on admission, presumed stable Hypothyroidism, present on admission, stable Movement disorder, present on admission, presumed stable Chronic constipation Urinary retention, not present on admission, resolving Medication Instructions DO NOT take Geodon as this medication caused your body temperature to drop too low. We have discontinued your propranolol as your heart rate and blood pressure were low with it. Discuss with your primary care provider before starting propranolol again. START lamotrigine 25mg, 1 tablet by mouth once daily. Your outpatient doctor may decide to change this medication or adjust the dosing after you have seen him. You have a follow up appointment with Dr Shafer on 06/10/16. Diet No restrictions Activity No restrictions Call your provider Fever or Chills, Shortness of breath, Bleeding, Chest pain, Vomitting, Excessive diarrhea, Weakness (unilateral) Patient Instructions Follow-up Provider: Bradly Shafer MD Follow-up with PCP in: Other (06/10/16. Please call the clinic if you have concerns prior to your appointment.) Wilson García DO 06/07/16 1653: Discharge Instructions Attending's Statement Read and agree An Rodriguez DO Jun 07, 2016 13:54 Wilson García DO Jun 07, 2016 16:53
[2016-06-07 15:30] VITALS: BP 139/78; PULSE 79; RESP 18; O2SAT 98
--- NOTE | 2016-06-07 16:24 | PCM.DC.MED ---
Discharge Summary Date of Service Jun 07, 2016 Dates of Hospitalization Date of Hospital Admission Jun 04, 2016 at 12:16 Date of Discharge: Jun 07, 2016 Providers: Admitting Physician: Reuben Felder MD Primary Care Physician: Bradly Shafer MD Attending Physician: Reuben Felder MD Diagnosis at Time of Discharge Diagnosis at Time of Discharge Altered Mental Status Hypothermia, present on admission, resolved - Initial rectal temperature was 34.4, now 36.8 - Secondary to Geodon Hypotension, as admission, active Frequent fall, present on admission, active Schizophrenia, present on admission, stable Impulse disorder, present on admission, presumed stable Dyslipidemia, present on admission, presumed stable Hypothyroidism, present on admission, stable Movement disorder, present on admission, presumed stable Chronic constipation Urinary retention, not present on admission, resolving Procedures XRay, CTs & MRIs PROCEDURE: CT BRAIN (TPA) IMPRESSION: 1. No acute intracranial disease process. 2. Findings telephoned to Dr. Kevin Damian on 06/04/2016 at 0952 hours. This study fulfills neurological imaging criteria for inclusion or exclusion of acute stroke therapies based on available published neurological guidelines. Dictated by: Lynn Friedman MD, PhD on 06/04/2016 at 9:55 PROCEDURE: MRI STROKE PROTOCOL Pre- and post-contrast brain MRI, non-contrast brain MR angiogram, pre- and postcontrast neck MR angiogram INDICATIONS: Slurred speech, TIA/Stroke IMPRESSION: BRAIN MRI: 1. No acute intracranial disease process. 2. No areas of acute or chronic infarction. 3. Mild, diffuse volume loss. 4. Mild periventricular and subcortical white matter chronic microvascular ischemic changes. 5. Image quality by patient motion artifact. BRAIN MR ANGIOGRAM: 1. No hemodynamically significant intracranial vascular stenosis or intracranial vascular occlusion. 2. Image quality limited by patient motion artifact. NECK MR ANGIOGRAM: 1. Less than 50% stenosis of the proximal internal carotid arteries bilaterally. 2. Origins of the vertebral arteries poorly visualized secondary to artifact. Origins of the arteries appear grossly patent on the source images. The estimate of stenosis included in the report of the imaging study was calculated using the NASCET method Dictated by: Lynn Friedman MD, PhD on 06/04/2016 at 16:26 Cardiac Echo Impression Transthoracic Echo 06/05/16: Interpretation Summary 1. Normal left ventricular size, wall thickness and systolic function with an estimated EF of 60-65% 2. Grossly normal right ventricular size and systolic function. 3. No evidence for valvular pathology. Brief History Per H&P by Dr Zuniga: Patient is a 66-year-old female with MHx significant for intellectual disability , hypertension, hyperlipidemia, hypothyroidism, and multiple psych disorder presented with slurred speech and weakness. Per her sitter, patient has been unsteady on her feet for the past months. She slumped on her knee while she tried to push forward on her 4 wheel walker yesterday evening. There were no loss of consciousness, no head trauma reported. Due to her significant weight however, patient was made comfortable with blankets on the floor. She slept through the night. Sitter noticed this morning however that patient had a facial droop with slurred speech beyond baseline, thus brought her to the ED. Sitter admits to observing patient's unsteady gait, and falling on her knees >3x/week. Patient fell once due to misplacing her arms on table chair. Sitter denies any histories of urinary/ bowel incontinence. Patient herself denies any pain or discomfort. On interview, patient answer appropriately on some questions while mumbles on others. She does not consistently follows commands for the full neurological examination today. Hospital Course The following were addressed during this hospitalization: Sarah Beth Turner is a 66yo female with intellectual disability, hypertension, hyperlipidemia, hypothyroidism, and multiple psychiatric disorders on high dose Geodon who presented with slurred speech and weakness that her caregiver noticed. She was found to be hypothermic and admitted for CVA evaluation. 1. Altered Mental Status secondary to Geodon Toxicity - Neurological examination at her baseline on the date of discharge per caregiver who has stayed with the patient through most of the day - Initial CT brain and subsequent MRA without any identifiable infarction or hemorrhage - Aspirin daily - Atorvastatin qHS - Discontinued Geodon on 06/05/16 as this may be the underlying problem causing # 2 and #3 2. Hypothermia, present on admission, resolved - Initial rectal temperature was 34.4, now 36.8 - Actively warmed and received warming pads to maintain a normal body temperature for the first 36hours 3. Hypotension, as admission, active - Likely secondary to toxic effect of Geodon - Held lisinopril/HCTZ, discontinued propranolol - NS 1L IV bolus given in addition to NS at 100mL/h while not consuming adequate oral intake 4. Frequent ground level falls, present on admission, active - May be secondary to #6 below, also potentially a result of hypotension - Physical therapy evaluated and the patient was able to sit up, stand, and ambulate with a front wheeled walker 5. Schizophrenia, present on admission, stable - Seroquel 4 mg daily in the evening 6. Impulse disorder, present on admission, presumed stable - Discontinued Geodon given #2 above - Attempted to contact her outpatient provider, Dr Shafer who is not in clinic. Advised his office of the discharge and discontinuation of Geodon. She has an appointment scheduled for 06/10/[address] Shafer. 7. Dyslipidemia, present on admission, presumed stable - Atorvastatin as above 8. Hypothyroidism, present on admission, stable - TSH is very mildly elevated at 4.72 and free T4 is normal - No change to her levothyroxine during this hospitalization 9. Movement disorder, present on admission, presumed stable - Benztropine 2 mg twice a day 10. Chronic constipation - Scheduled miralax daily Dr Shafer's office has been notified of the discharge and discontinuation of Geodon. Exam Vital Signs (Last) Date Time Temp Pulse Resp B/P Pulse Ox O2 Delivery O2 Flow Rate FiO2 06/07/16 14:12 Room Air 06/07/16 11:18 80 06/07/16 10:16 36.4 20 124/84 97 Exam On the date of discharge: General: Resting comfortably in bed, smiling and pleasant. Awake and alert. No acute distress. Speech is slow and at baseline HEENT: Poor dentition. Mucus membranes moist. Cardiac: Regular rate and rhythm without murmur, rub or gallop. No JVD. Abdomen: Obese, soft, nontender, and nondistended with normoactive bowel tones Extremities: No edema, clubbing, or cyanosis Neuro: Cranial nerves grossly intact. Normal muscle strength, tone, and bulk. Moves on all 4 extremities with ease. No facial droop or tongue deviation. Psychiatric: Alert and oriented 3, no slurred speech Test 06/04/16 09:35 06/04/16 10:15 06/05/16 06:45 06/06/16 05:50 Prothrombin Time 11.2sec (8.1-12.5) Prothromb Time International Ratio 1.05ratio Troponin T < 0.010ug/L (0.0-0.011) Thyroid Stimulating Hormone (TSH) 4.720uIU/mL (0.450-4.500) Free Thyroxine 1.43ng/dL (0.82-1.77) Urine Color Yellow (YELLOW) Urine Appearance Hazy (CLEAR,HAZY) Urine pH 6.5 (5.0-8.0) Urine Specific [place] 1.015 (1.003-1.035) Urine Protein Negativemg/dL (NEG,TRACE) Urine Glucose (UA) Negativemg/dL (NEGATIVE) Urine Ketones Tracemg/dL (NEGATIVE) Urine Occult Blood Negative (NEGATIVE) Urine Nitrite Negative (NEGATIVE) Urine Bilirubin Negative (NEGATIVE) Urine Urobilinogen Normalmg/dL (NORMAL) Urine Leukocyte Esterase Trace (NEGATIVE) Urine RBC 0-2/hpf (0-2) Urine WBC 6-10/hpf (0-5) Urine Epithelial Cells Occasional/hpf (NONE-MOD) Urine Crystals None seen (NONE SEEN) Urine Bacteria Few/hpf (NONE-FEW) Urine Hyaline Casts Occasional/lpf (NONE) Urine Granular Casts None seen (NONE SEEN) Urine Waxy Casts None seen (NONE SEEN) Urine Red Blood Cell Casts None seen (NONE SEEN) Urine White Blood Cell Casts None seen (NONE SEEN) Urine Mucus None seen (None Seen) Urine Trichomonas None seen (NONE SEEN) Urine Yeast None (NONE SEEN) Urinalysis Comment None Urine Culture Reflexed Indicated Triglycerides Level 126mg/dL (0-149) Cholesterol Level 123mg/dL (100-199) LDL Cholesterol, Calculated 49.800mg/dL (0-99) VLDL Cholesterol 25.200mg/dL HDL Cholesterol 48mg/dL (>39) Cholesterol/HDL Ratio 2.56 (0.0-4.4) White Blood Count 6.3th/mm3 (3.8-10.1) Red Blood Count 3.86mil/mm3 (3.90-5.20) Hemoglobin 11.8g/dL (12.0-15.6) Hematocrit 36.5% (35.0-46.0) Mean Corpuscular Volume 94.6fL (81-100) Mean Corpuscular Hemoglobin 30.6pg (27.0-35.0) Mean Corpuscular Hemoglobin Concent 32.3% (32.0-37.0) Red Cell Distribution Width 14.5% (12.3-15.4) Platelet Count 158bil/L (150-400) Neutrophils (%) (Auto) 44.8% (40-74) Lymphocytes (%) (Auto) 39.3% (14-46) Monocytes (%) (Auto) 12.3% (4-12) Eosinophils (%) (Auto) 3.0% (0-5) Basophils (%) (Auto) 0.3% (0-3) Test 06/07/16 09:23 Sodium Level 145mEq/L (134-144) Potassium Level 4.4mEq/L (3.5-5.2) Chloride Level 108mEq/L (97-108) Carbon Dioxide Level 26mmol/L (18-29) Blood Urea Nitrogen 12mg/dL (8-27) Creatinine 0.84mg/dL (0.57-1.00) Estimat Glomerular Filtration Rate 97mL/min (>59) Glucose Level 112mg/dL (60-99) Calcium Level 8.7mg/dL (8.5-10.1) Total Bilirubin 0.3mg/dL (0.0-1.2) Aspartate Amino Transf (AST/SGOT) 57U/L (0-50) Alanine Aminotransferase (ALT/SGPT) 65U/L (0-32) Alkaline Phosphatase 98U/L (25-165) Total Protein 6.1g/dL (6.4-8.4) Albumin 3.1g/dL (3.4-5.0) Discharge Medications Discharge Medications Ascorbic Acid (Vitamin C) 1,000 Mg Tab.chew 1,000 MG PO DAILY (Reported) Benztropine Mesylate (Benztropine Mesylate) 2 Mg Tablet 2 MG PO BID (Reported) Cephalexin (Keflex) 500 Mg Capsule 500 MG PO QID (Reported) Cholecalciferol (Vitamin D3) (Vitamin D) 1,000 Unit Tablet 2,000 UNIT PO DAILY ( Reported) Docusate Sodium (Colace) 100 Mg Capsule 100 MG PO BID (Reported) Ezetimibe (Zetia) 10 Mg Tablet 10 MG PO DAILY (Reported) Lamotrigine (Lamotrigine) 25 Mg Tablet 25 MG PO DAILY Prescribed by: JENARO BROOKS DO Levothyroxine (Levothyroxine) 50 Mcg Tablet 50 MCG PO DAILY (Reported) Lisinopril / HCTZ 10-12.5 mg (Lisinopril / HCTZ 10-12.5 mg) 1 Each Tablet 1 EACH PO DAILY (Reported) Loratadine (Claritin) 10 Mg Capsule 10 MG PO DAILY (Reported) Multivitamin (Multi Vitamin Daily) 1 Each Tablet 1 EACH PO DAILY (Reported) Quetiapine Fumarate (Quetiapine Fumarate) 400 Mg Tablet 400 MG PO HS (Reported) Simvastatin (Simvastatin) 40 Mg Tablet 40 MG PO HS (Reported) As needed Acetaminophen (Acetaminophen) 500 Mg Tablet 1,000 MG PO Q4H PRN PRN For Fever ( Reported) Magnesium Hydroxide (Milk of Magnesia) 2,400 Mg/10 Ml Oral.susp 2,400 MG PO TID PRN PRN For Constipation (Reported) Miscellaneous Medications Polyethylene Glycol 3350 (Miralax) 17 Gm Powd.pack 17 GM PO (Reported) Additional med instructions DO NOT take Geodon as this medication caused your body temperature to drop too low. We have discontinued your propranolol as your heart rate and blood pressure were low with it. Discuss with your primary care provider before starting propranolol again. START lamotrigine 25mg, 1 tablet by mouth once daily. Your outpatient doctor may decide to change this medication or adjust the dosing after you have seen him. You have a follow up appointment with Dr Shafer on 06/10/16. Followup Plan Disposition: Home with caregivers Discharge Diet: No restrictions Discharge Activity: No restrictions Follow-up Provider: Bradly Shafer MD Follow-up with PCP in: Other (06/10/16. Please call the clinic if you have concerns prior to your appointment.) Time spent 45 minutes Attending Statement I have seen and evaluated patient at bedside, in addition to directly supervising care provided by resident physician. I agree with above documentation. copies to: Bradly Shafer MD, Rachel M DO Jun 07, 2016 15:41 Wilson García DO Jun 07, 2016 17:08
--- NOTE | 2016-06-07 16:29 | NUR ---
Discharge Patient departed unit via wheelchair accompanied by staff and caregiver. Cabulance to transfer patient to residence. Patient alert and oriented, continues to be resistant to efforts to increase mobility. Javier catheter removed this morning. Patient has urinated X 3 and had 1 bowel movement. Addendum: 06/07/16 at 1809 by THOMAS ACEVEDO RN Patient departed @ 1800 Patient has urinated X 3 and had 1 bowel movement since this AM. Patient respiratory function and nutritional intake at baseline. Patient denies nausea, pain, abdominal discomfort, chest pain or discomfort, shortness of breath, and no signs/symptoms of infection at time of discharge.Patient departed @ 1800 Discharge instructions/mediations reviewed with patient and research management associate prior to discharge. All questions addressed. Discharge instructions, patient belongings and prescription in hand.
--- NOTE | 2016-06-07 16:29 | NUR ---
Social Work-discharge: Data:EMR reviewed. Pt is on day 3 of hospitalization for CVA per H&P. Pt is medically stable to discharge back to home with 24/7 care today. PT worked with pt and recommended back to home with 24/7 care and HH. JORDON informed Andrew Carey with [facility] of discharge and faxed F2F and orders for RN,PT, and OT. JORDON called [employer] and arranged [employer] cabulance for 1700. JORDON placed a call to Tax Preparer Bel and informed her of discharge and time. JORDON also informed her of HH. All updated and agreeable to plan. Assessment:Pt who would benefit from HH. Plan:Pt to discharge back to Home with 24/7 care and [facility] RN,OT, and PT. Sofia/Ca mock arranged for 1700. F2F and orders given to [facility]. [employer] Bel updated and agreeable to plan. MAYDA Berg
--- NOTE | 2016-06-07 18:32 | NUR ---
Case Management: Attempted to provide IMM at 1805, pt had just been discharged. Anh Trejo RN
[2016-09-16] MEDS ORDERED: LEVO75TA4 PO (08:17)
== END 2016-06-07 18:04 | disposition home health service (06) | DRG 917 ==
LOC: EDUNIT# 09:32 → SED 09:32 → EDSEX 09:32 → EDBD 09:32 → MPC 12:16 → OBSVTOIN 12:16
PROVIDERS: ADMIT Family Medicine; ATTEND Family Medicine
DX: T43.501A Poisoning by unspecified antipsychotics and neuroleptics, accidental (unintentional), initial encounter (principal); G92 Toxic encephalopathy; G25.9 Extrapyramidal and movement disorder, unspecified; R68.0 Hypothermia, not associated with low environmental temperature; F79 Unspecified intellectual disabilities; E03.9 Hypothyroidism, unspecified; E78.5 Hyperlipidemia, unspecified; F41.9 Anxiety disorder, unspecified; F20.9 Schizophrenia, unspecified; R29.6 Repeated falls; I10 Essential (primary) hypertension; F63.9 Impulse disorder, unspecified; K59.09 Other constipation; R33.9 Retention of urine, unspecified; Z88.0 Allergy status to penicillin

== ENCOUNTER 2016-07-18 17:34 | Emergency (ER) | payer MEDICARE, MEDICAID ==
[~2016-07-18 17:34] MED LIST changes: +ACET-171 PO; +ASCO100089 PO; +BENZ2TAB7 PO; +CEPH-512 PO; +CHOL100043 PO; +DOCU-41 PO; -ERYT1OIN7 LEFT_EYE; +EZET10TA PO; +LAMO25TA PO; +LEVO50TA6 PO; +LISI1TAB7 PO; +LORA10CA PO; +MAGN800O PO; +MULT-1018 PO; +POLY17PO6 PO; +QUET400T35 PO; +SIMV40TA5 PO
[2016-07-18 17:41] VITALS: PULSE 116; RESP 18; O2SAT 95
[2016-07-18 18:53] VITALS: BP 144/90; PULSE 114; RESP 18; O2SAT 93
--- NOTE | 2016-07-18 19:52 | ED.REPORT ---
HPI-General Illness Date of Service Jul 18, 2016 ED Provider: Isrrael Erazo MD A 66 year old female with a history including intellectual disability, hypertension, hyperlipidemia, tremors, and many psychiatric disorders presents to the ED via EMS complaining of worsening tremors that began 2 weeks ago. 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 Patient has since stopped taking Geodon and switched to Lamictal. The patient's typewriters functional tester reports that she has been unable to form sentences and has been experiencing declining memory. Patient has check-up's with her PCP every two weeks. Patient' s typewriters functional tester expressed concern after recording hypertension earlier this evening. She denies any dysuria, headache, or abdominal pain. Nursing Notes Stated Complaint: TREMORS Chief Complaint: General Complaint Nursing Notes Reviewed: Yes Allergies: Coded Allergies: Penicillins (Unverified Allergy, Severe, 03/18/09) risperidone (Unverified Allergy, Severe, 03/18/09) thiothixene (Verified Allergy, Unknown, 07/18/16) Scheduled Ascorbic Acid (Vitamin C) 1,000 Mg Tab.chew 1,000 MG PO DAILY Benztropine Mesylate (Benztropine Mesylate) 2 Mg Tablet 2 MG PO BID Cephalexin (Keflex) 500 Mg Capsule 500 MG PO QID Cholecalciferol (Vitamin D3) (Vitamin D) 1,000 Unit Tablet 2,000 UNIT PO DAILY Ciprofloxacin (Ciprofloxacin) 500 Mg Tablet 500 MG PO BID Docusate Sodium (Colace) 100 Mg Capsule 100 MG PO BID Ezetimibe (Zetia) 10 Mg Tablet 10 MG PO DAILY Lamotrigine (Lamotrigine) 25 Mg Tablet 25 MG PO DAILY Levothyroxine (Levothyroxine) 50 Mcg Tablet 50 MCG PO DAILY Lisinopril / HCTZ 10-12.5 mg (Lisinopril / HCTZ 10-12.5 mg) 1 Each Tablet 1 EACH PO DAILY Loratadine (Claritin) 10 Mg Capsule 10 MG PO DAILY Multivitamin (Multi Vitamin Daily) 1 Each Tablet 1 EACH PO DAILY Quetiapine Fumarate (Quetiapine Fumarate) 400 Mg Tablet 400 MG PO HS Simvastatin (Simvastatin) 40 Mg Tablet 40 MG PO HS Scheduled PRN Acetaminophen (Acetaminophen) 500 Mg Tablet 1,000 MG PO Q4H PRN PRN For Fever Magnesium Hydroxide (Milk of Magnesia) 2,400 Mg/10 Ml Oral.susp 2,400 MG PO TID PRN PRN For Constipation Miscellaneous Medications Polyethylene Glycol 3350 (Miralax) 17 Gm Powd.pack 17 GM PO General Time Seen by MD: 18:59 Chief Complaint Other (Worsening tremors) Hx Obtained From: Patient, [facility] Arrived By: Ambulance Sudden in Onset?: No Onset Occurred: More than a week ago... (2 weeks) Context of Onset: Medication reaction Symptom Duration: Since onset Associated with: Denies: Abdominal pain, Headache Pertinent Negative: Pt denies other symptoms Recent Healthcare: Recent doctor visit, Recent hospitalization Past Medical History Past Medical History Notes: Admitted 06/04: Altered Mental Status secondary to Geodon Toxicity Past Medical History Intellectual disability Hypertension Schizophrenia Impulse control disorder Tremors Hyperlipidemia Depression Hormone replacement therapy Anxiety disorder Hypothyroidism Idiopathic scoliosis Hx UTI Past Surgical History None reported Smoking History Unknown if Ever Smoker Social History Lives in private residence with skilled attendants 13/12 Other Social History: Good social support, Local resident Ambulatory Status Walker Review of Systems Full Review of Systems Constitutional: Denies: Chills, Fever Respiratory: Denies: Shortness of breath Cardiovascular: Denies: Chest pain GI: Denies: Abdominal pain, Nausea, Vomiting Female: Denies: Dysuria Neurologic: Reports: Confusion, Shaking (Tremors), Unable to speak (Unable to complete sentences ), Denies: Change LOC Psychiatric: Reports: Change mental status Complete sys rev & neg: except as marked. Physical Exam Vital Signs Vital Signs Date Time Temp Pulse Resp B/P Pulse Ox O2 Delivery O2 Flow Rate FiO2 07/18/16 22:02 98 18 150/90 93 Room Air 07/18/16 18:53 114 18 144/90 93 07/18/16 17:41 37.0 116 18 95 Room Air Initial VS: Reviewed Neck: Supple, Non-tender, Full range of motion Extremities: Vascular intact, Neuro intact, No swelling, No tenderness Skin: Warm, Dry, No cyanosis General/Constitutional: Awake, Alert, No acute distress Head / Eyes: Atraumatic, Normocephalic Respiratory / Chest: Atraumatic, Breath sounds NL, Breath sounds = bilat, No respiratory distress Cardiovascular: Heart rate NL, Regular rhythm, Heart sounds NL CARDIO: No lower extremity edema Abdomen: Atraumatic, Soft, Non-tender, No guarding, No rebound Interpretation & Diagnostics Lab Results Interpretation Result Diagram: 07/18/16 2015 07/18/16 2015 Test 07/18/16 20:15 07/18/16 20:25 White Blood Count 7.5th/mm3 (3.8-10.1) Red Blood Count 4.34mil/mm3 (3.90-5.20) Hemoglobin 13.0g/dL (12.0-15.6) Hematocrit 39.8% (35.0-46.0) Mean Corpuscular Volume 91.7fL (81-100) Mean Corpuscular Hemoglobin 30.0pg (27.0-35.0) Mean Corpuscular Hemoglobin Concent 32.7% (32.0-37.0) Red Cell Distribution Width 13.1% (12.3-15.4) Platelet Count 235bil/L (150-400) Neutrophils (%) (Auto) 57.0% (40-74) Lymphocytes (%) (Auto) 30.4% (14-46) Monocytes (%) (Auto) 10.3% (4-12) Eosinophils (%) (Auto) 2.1% (0-5) Basophils (%) (Auto) 0.1% (0-3) Sodium Level 139mEq/L (134-144) Potassium Level 3.8mEq/L (3.5-5.2) Chloride Level 99mEq/L (97-108) Carbon Dioxide Level 26mmol/L (18-29) Blood Urea Nitrogen 8mg/dL (8-27) Creatinine 0.78mg/dL (0.57-1.00) Estimat Glomerular Filtration Rate 106mL/min (>59) Glucose Level 111mg/dL (60-99) Calcium Level 9.8mg/dL (8.5-10.1) Total Bilirubin 0.3mg/dL (0.0-1.2) Aspartate Amino Transf (AST/SGOT) 32U/L (0-50) Alanine Aminotransferase (ALT/SGPT) 35U/L (0-32) Alkaline Phosphatase 106U/L (25-165) Total Protein 7.1g/dL (6.4-8.4) Albumin 3.9g/dL (3.4-5.0) Hold Tinajero Top Tube Received (Received) Urine Color Yellow (YELLOW) Urine Appearance Clear (CLEAR,HAZY) Urine pH 6.5 (5.0-8.0) Urine Specific Alpha 1.010 (1.003-1.035) Urine Protein Negativemg/dL (NEG,TRACE) Urine Glucose (UA) Negativemg/dL (NEGATIVE) Urine Ketones Tracemg/dL (NEGATIVE) Urine Occult Blood Negative (NEGATIVE) Urine Nitrite Negative (NEGATIVE) Urine Bilirubin Negative (NEGATIVE) Urine Urobilinogen Normalmg/dL (NORMAL) Urine Leukocyte Esterase Small (NEGATIVE) Urine RBC 0-2/hpf (0-2) Urine WBC >50/hpf (0-5) Urine Epithelial Cells Few/hpf (NONE-MOD) Urine Crystals None seen (NONE SEEN) Urine Bacteria Many/hpf (NONE-FEW) Urine Hyaline Casts None/lpf (NONE) Urine Granular Casts None seen (NONE SEEN) Urine Waxy Casts None seen (NONE SEEN) Urine Red Blood Cell Casts None seen (NONE SEEN) Urine White Blood Cell Casts None seen (NONE SEEN) Urine Mucus None seen (None Seen) Urine Trichomonas None seen (NONE SEEN) Urine Yeast None (NONE SEEN) Urinalysis Comment None Urine Culture Reflexed Indicated Re-Eval/Medical Decision Med Decision/Clinical Course 66-year-old female with developmental delay presenting with increased tremors times 1 month since significant medication changes. Patient was here one month ago and admitted for Geodon toxicity. Geodon was discontinued and she was started on a mental. Reportedly per caregiver and family since then with increased tremors. Also a questionable change in her verbal communication. Labs are unremarkable. Urine shows UTI. Discussed with family and they would like to go home and follow-up with primary doctor tomorrow. Caregiver agrees. We will treat with oral antibiotics as below. Recommend follow-up with primary doctor to discuss medication regimen. Time of Eval: 21:46 Patient Status: Condition improved Re-Evaluation/Progress Note: Patient is rechecked. [facility] is informed of her lab results and diagnosis. All of the patient's questions are addressed. She understands and agrees with the treatment plan. Counseled Regarding: Diagnosis, Lab results, Need for follow-up, When/why to return to ED Discharge & Departure Primary Impression: Urinary tract infection Urinary tract infection type: site unspecified Hematuria presence: without hematuria Qualified Code: N39.0 - Urinary tract infection, site not specified Disposition: Home Discharge Condition All VS Reviewed: Yes Condition: Stable Patient Instructions: Urinary Tract Infection in Women (ED) Additional Instructions: Thank you for trusting us with your care this evening. Your lab results revealed a urinary tract infection. Please take Cipro as directed. Schedule a follow up appointment with your primary care physician in the next 2- 3 days for a recheck. I recommend you talk with your doctor about medication reactions. Please return to the emergency department for any new or worsening conditions. Referrals: Bradly Shafer MD (PCP) Scribe Attestation Portions of this note were transcribed by Forest Guerrero. I, Dr. Erazo personally performed the history, physical exam and medical decision-making; I reviewed and confirmed the accuracy of the information in the transcribed note. Signed by: Abundio Nelson, 07/18/16 2300. copies to: Bradly Shafer MD, Ben M MD Jul 18, 2016 19:52 FOREST GUERRERO Jul 18, 2016 20:10
[2016-07-18 20:27] LABS: BASOPHILS % (AUTO) 0.1 % (0-3); EOSINOPHILS % (AUTO) 2.1 % (0-5); MONOCYTES % (AUTO) 10.3 % (4-12); Mean Corpuscular Volume 91.7 fL (81-100); Platelet Count 235 bil/L (150-400)
[2016-07-18 21:33] LABS: APPEARANCE,URINE CLEAR (CLEAR,HAZY); COLOR,URINE YELLOW (YELLOW)
[2016-07-18 21:34] LABS: OCCULT BLOOD,URINE NEGATIVE (NEGATIVE); PH,URINE 6.5 (5.0-8.0); UROBILINOGEN,URINE NORMAL (NORMAL)
[2016-07-18] MEDS ORDERED: lamoTRIgine 25 mg Tablet PO ONE (21:35)
[2016-07-18] MEDS ORDERED: CIPR-198 PO (21:46)
[2016-07-18 22:02] VITALS: BP 150/90; PULSE 98; RESP 18; O2SAT 93
[2016-09-16] MEDS ORDERED: LEVO75TA4 PO (08:17)
== END 2016-07-18 22:49 | disposition home or self-care (01) ==
LOC: EDBD 17:34 → SED 17:34
DX: N39.0 Urinary tract infection, site not specified (principal); B96.20 Unspecified Escherichia coli [E. coli] as the cause of diseases classified elsewhere; R25.1 Tremor, unspecified; F79 Unspecified intellectual disabilities; I10 Essential (primary) hypertension; E78.5 Hyperlipidemia, unspecified; F20.9 Schizophrenia, unspecified; Z87.440 Personal history of urinary (tract) infections; Z88.0 Allergy status to penicillin; Z88.8 Allergy status to other drugs, medicaments and biological substances

== ENCOUNTER 2016-09-17 10:34 | Day surgery (SDC) | payer MEDICARE, MEDICAID ==
[2016-09-17] VITALS (9 sets, daily range): BP systolic 125–172; BP diastolic 70–99; PULSE 87–102; RESP 10–18; O2SAT 93–100
[~2016-09-17] VITALS: Ht 15.2 cm; Wt 75.1 kg
[~2016-09-17 10:34] MED LIST changes: -CEPH-512 PO; +CIPR-198 PO; +Clindamycin Inj 900 MG in IV Premix 1 EACH IV SCH; -LEVO50TA6 PO; +LEVO75TA4 PO; +Lactated Ringer's 1,000 ML IV SCH; -MAGN800O PO
[2016-09-17] MEDS ORDERED: Dexamethasone 4 mg/mL Inj ONE (10:35)
[2016-09-17] MEDS ORDERED: fentaNYL-PF 50 mCg/mL 2 mL Inj ONE (10:35)
[2016-09-17] MEDS ORDERED: Propofol 10,000 mCg/mL 20 mL Inj ONE (10:35)
[2016-09-17] MEDS ORDERED: Clindamycin 900 mg/50 mL D5W Premix IV ONE (10:45)
[2016-09-17] MEDS ORDERED: GUAN1TAB PO (11:36)
[2016-09-17] MEDS ORDERED: MAGN400O4 PO (11:36)
[2016-09-17] MEDS ORDERED: PROP120C2 PO (11:36)
[2016-09-17] MEDS ORDERED: KLO5T PO (11:36)
[2016-09-17] MEDS ORDERED: Bupivacaine-MPF 0.5% W/EPI 30 mL Inj INFILTRATE ONE (13:00)
[2016-09-17] MEDS ORDERED: Lactated Ringer's 500 ML IV PRN (13:37)
--- NOTE | 2016-09-17 13:37 | PCM.HPANE ---
Patient Data Date of Service: Sep 17, 2016 Surgeon Admitting Provider: Attending Provider:Chapo Monreal MD Primary Care Physician:Bradly Shafer MD Other Provider:Zane Enriquez Anesthesia Reason for Visit Right Breast Cancer Ht/WT & BMI Height (Feet): 5 Height (Inches): 6 Weight (Kilograms): 75.1 Body Mass Index 3337.00 Allergies Coded Allergies: Penicillins (Unverified Allergy, Severe, 09/17/16) risperidone (Unverified Allergy, Severe, 09/17/16) thiothixene (Verified Allergy, Unknown, 09/17/16) Past Anesthesia History Anesthesia History: Denies:: Anesthesia Reactions Diabetes History Hx Diabetes?: No MRSA MRSA: No Medications Home Meds Incl Beta Rylee: Yes Date Beta Rylee Taken: Sep 17, 2016 Time Beta Rylee Taken: 729 Active Scripts Lamotrigine 25 Mg Ldvrzs23 Mg PO DAILY #10 TABLET Ref 0 Prov:An Rodriguez DO 06/07/16 Reported Medications Guanfacine 1 Mg Tablet1 Mg PO HS 09/17/16 Clonazepam 0.5 Mg Tablet0.5 Mg PO BID PRN For Anxiety Ref 0 09/17/16 Propranolol ER 120 Mg Cap.sa.35a503 Mg PO DAILY 09/17/16 Magnesium Hydroxide (Milk of Magnesia)400 Mg/5 Ml Oral.suspUnknown Dose PO 09/17/16 Levothyroxine 75 Mcg Tyddzy39 Mcg PO DAILY Ref 0 09/16/16 Benztropine Mesylate 2 Mg Tablet2 Mg PO BID Ref 0 06/04/16 Acetaminophen 500 Mg Tablet1,000 Mg PO Q4H PRN For Fever 06/04/16 Docusate Sodium (Colace)100 Mg Jaxcykm601 Mg PO BID Ref 0 06/04/16 Ezetimibe (Zetia)10 Mg Oclsdz52 Mg PO DAILY 30 Days Ref 0 06/04/16 Cholecalciferol (Vitamin D3) (Vitamin D)1,000 Unit Tablet2,000 Unit PO DAILY #1 BOTTLE Ref 0 06/04/16 Ascorbic Acid (Vitamin C)1,000 Mg Tab.chew1,000 Mg PO DAILY Ref 0 06/04/16 Simvastatin 40 Mg Rtjxrv61 Mg PO HS 30 Days Ref 0 06/04/16 Quetiapine Fumarate 400 Mg Fznept575 Mg PO HS Ref 0 06/04/16 Polyethylene Glycol 3350 (Miralax)17 Gm Powd.pack17 Gm PO 06/04/16 Multivitamin (Multi Vitamin Daily)1 Each Tablet1 Each PO DAILY 30 Days Ref 0 06/04/16 Loratadine (Claritin)10 Mg Amxcpww22 Mg PO DAILY Ref 0 06/04/16 Lisinopril / HCTZ 10-12.5 mg 1 Each Tablet1 Each PO DAILY Ref 0 06/04/16 Discontinued Reported Medications Cephalexin (Keflex)500 Mg Oopxhnn700 Mg PO QID #40 CAPSULE Ref 0 06/04/16 Magnesium Hydroxide (Milk of Magnesia)2,400 Mg/10 Ml Oral.susp2,400 Mg PO TID PRN For Constipation 06/04/16 Levothyroxine 50 Mcg Dvlttj55 Mcg PO DAILY Ref 0 06/04/16 Discontinued Scripts Ciprofloxacin 500 Mg Wngyoi389 Mg PO BID #14 TABLET Prov:Isrrael Erazo MD 07/18/16 History History of ENT Problems?: No HEENT History: Positive for:: Sinus Problem (seasonal allergic rhinitis) Denies:: Cataracts Dysphagia Denture Type: None Teeth Condition: Within Normal Limits Hx of Heart Problems?: Yes Cardiovascular History: Positive for:: Coronary Artery Disease ( hypercholesterolemia) Hypertension Denies:: Cardiac Surgery Chest Pain Congestive Heart Failure Edema Heart Murmur Irregular Heartbeat Pacemaker Thrombophlebitis Hx of Respiratory Problem?: No Respiratory History: Denies:: Asthma COPD Chest Surgery Dyspnea Emphysema Hemoptysis Pneumonia Tuberculosis Hx Neurologic Problems?: Yes Neurological History: Positive for:: Dementia (possibly per caregivers) Denies:: Alzheimer's Disease CVA (prev. rule out, ended up being Geodon toxicity) Dizziness Headaches Parkinson's Disease Seizures Other Neurological Pertinent: ataxia, tardive dyskinesia Hx of GI Problems?: No Hx of Problems?: Yes Genitourinary History: Positive for:: Urinary Tract Infection (hx of) Denies:: HX of Hemodialysis Kidney Stones HX of Peritoneal Dialysis: No Female Hx: Positive for:: Problems with Breasts? (possible cancer) Denies:: Currently Endometriosis Pelvic Inflammatory Skin History: Denies:: History Skin Disorders? Pressure Ulcers Hx Musculoskeletal Problems?: No Musculoskeletal History: Denies:: Back Injury (bilateral low back pain) Joint Replacement Musculoskeletal Trauma Hx of Psycho/Social Problems?: Yes Psycho Social History: Positive for:: Anxiety (developmenal delayed, impulse control disorder) Hx Depression Denies:: Bipolar Disorder (schizophrenia) Suicide Attempt Hx Surgeries?: Yes Hx Any Other Health Problems?: Yes Other History: Positive for:: Cancer (possible breast CA-refusing to ACK) Hospitalization Thyroid Disease (hypothyroid) History Blood Transfusions: Denies:: Blood Transfuse Reaction Blood Transfusions Hx Diabetes: No Hx Alcohol Use: NoHx Substance Use: No Smoking Status: Unknown if Ever Smoker Have You Smoked inLast 12 mo: No Stop/Bang Treated for Sleep Apnea?: Yes Do You Have a CPAP Machine?: Yes Did you bring your Machine? Per surgeon S-Snoring: Do You Snore Loudly: No T-Tired: feel tired, fatigued: No O-Obsered: Observed not breath: No P-Blood Pressure: treated: Yes B- Body Mass Index > 35 kg/m2: No A- Age over 50: Yes N- Neck Large Circumference: No G- Gender Male: No DESIREE Total Score: 2 DESIREE Risk Assessment: High Risk, =/>3 Yes Risk Assessment Category Category 1A: Patient has history of documented sleep apnea, and HAS NOT received any narcotic, sedative or anesthesia administration during this stay. Category 1B: Patient has history of documented sleep apnea, and HAS received any narcotic , sedative or anesthesia administration during this stay Category 2: Patient has SUSPECTED Obstructive Sleep Apnea, and HAS received any narcotic , sedative or anesthesia administration during this stay. Category 3: Patient has SUSPECTED Obstructive Sleep Apnea and HAS NOT received narcotic, sedative or anesthesia administration during this stay. Category 4: Outpatient in Procedural Areas with known sleep apnea or who screen positive for High Risk via the STOP/BANG questionnaire. Exam Exam Vital Signs Vital Signs Date Time Temp Pulse Resp B/P Pulse Ox O2 Delivery O2 Flow Rate FiO2 09/17/16 10:55 36.2 87 16 138/99 99 Room Air General Appearance: Alert, Oriented X3, Cooperative, No Acute Distress HEENT/AIRWAY: MP 2 Lungs: Clear to Auscultation, Normal Air Movement Heart: Exam Unremarkable, Regular Rate/Rhythm, No Murmurs/Rubs/Gallops Meds/Labs/Diagnostics Admission Meds Current Medications Clindamycin Phosphate/ Dextrose 900 mg/ Premix 50 ml @ 100 mls/hr PREOP IV Last administered on 09/17/16t 12:59; Start 09/17/16 at 06:00; Stop 09/17/16 at 06:29; Status DC Lactated Ringer's (Lr) 1,000 ml @ 120 mls/hr Q8H20M IV Last administered on 12:43; Start 09/17/16 at 05:00; Stop 09/17/16 at 13:19; Status DC Bupivacaine HCl/ Epinephrine Bitart (Sensorcaine-MPF 0.5% W/EPI Inj) 30 ml STK- MED ONCE INFILTRATE Last administered on 09/17/16 13:00; Start 09/17/16 at 13: 00; Stop 09/17/16 at 13:27; Status DC Plan Impression Patient chart reviewed, patient interviewed and anesthestic plan with risks, benefits, and alternatives discussed, and informed consent obtained. NPO per Anesth. Guidelines: Yes ASA Physical Status: ASA3 Severe Disease Anesthetic Plan: GA Bene/Risks/Altern/Consents: Yes HP Complete Prior to Induction: Yes Kwaku Rapp DO Sep 17, 2016 13:37
[2016-09-17] MEDS ORDERED: HYDROmorphone 1 mg/mL Inj IVPUSH PRN (13:40)
[2016-09-17] MEDS ORDERED: fentaNYL-PF 50 mCg/mL 2 mL Inj IVPUSH PRN (13:40)
[2016-09-17] MEDS ORDERED: Ondansetron 2 mg/mL 2 mL Inj IVPUSH PRN (13:40)
[2016-09-17] MEDS ORDERED: Phenylephrine 10,000 mCg/mL Inj IVPUSH PRN (13:40)
[2016-09-17] MEDS ORDERED: EPHEDrine Sulfate 50 mg/mL Inj IVPUSH PRN (13:40)
[2016-09-17] MEDS ORDERED: Dexamethasone 4 mg/mL Inj IVPUSH PRN (13:40)
[2016-09-17] MEDS ORDERED: MetoCLOpramide 5 mg/mL 2 mL Inj IVPUSH PRN (13:40)
[2016-09-17] MEDS: Lactated Ringer's 1,000 ML IV SCH ×2 (14:01→15:11)
[2016-09-17] MEDS ORDERED: Ketorolac 15 mg/mL Inj IVPUSH PRN (14:05)
--- NOTE | 2016-09-17 14:07 | PCM.DISURG ---
Surgical Discharge Instruction Date of Service Sep 17, 2016 Dates of Hospitalization Date of Hospital Admission Providers Admitting Physician: Primary Care Physician: Bradly Shafer MD Attending Physician: Chapo Monreal MD Discharge Diagnosis Discharge Diagnosis Right breast cancer Diet Discharge Diet: No restrictions Activity Discharge Activity-General: No restrictions Dressing and Incisional Care Dressing Instructions: Dermabond will peel off gradually Hygiene: May shower Follow Up Plan Follow Up Plan With Dr. Monreal in surgery clinic in 10-14 days Call your provider for: Fever, Discharge @ incision, pus discharge Chapo Monreal MD Sep 17, 2016 14:07
--- NOTE | 2016-09-17 14:15 | PCM.SURGOP ---
Surgical Operative Report Date of Service: Sep 17, 2016 Pre Operative Diagnosis Right breast cancer Post Operative Diagnosis Same Procedure: Wire localized right partial mastectomy, right axillary sentinel lymph node biopsy Surgeon and Neurology Epilepsy Physician: Surgeon: Chapo Monreal MD Assistants: Michael Perez PA-C Indication for Procedure 66-year-old woman who had bilateral screening mammograms, which demonstrated a new cluster of heterogeneous calcifications in the right breast 11:00 middle depth. Ultrasound showed no abnormalities. Because she has significant psychiatric illness, it was difficult to arrange a biopsy, but ultimately that was achieved. Her biopsy showed invasive ductal carcinoma, moderately differentiated, ER/TN positive, HER-2 negative. After discussion of risks and benefits, she agreed to proceed with wire localized right partial mastectomy, right axillary sentinel lymph node biopsy. Findings: The radiographic lesion and clip were successfully localized. There was a single sentinel node, with an ex vivo gamma count of 56, compared to a background count of 2. Methylene blue was utilized as well, and the sentinel node had blue dye uptake. Procedure Details Preoperatively, the patient underwent wire localization in the Breast [facility]. She was then brought to the preoperative area, where she underwent injection of radiotracer for sentinel lymph node identification. She was brought to the operating room, where she underwent smooth induction of general anesthesia with an LMA. Assessment of the right axilla with the gamma probe revealed a somewhat weak radiotracer signal, so methylene blue was injected. Total of 2 mL was injected in 4 aliquots into the subdermal tissue around the periareolar border. The breast was massaged for several minutes. She was prepped and draped in wide sterile fashion. A procedural pause was performed according to the SCOAP checklist, and all were found to be in agreement. A curvilinear transverse incision was made in the upper outer quadrant of the right breast. The incision was just superior to the wire, because the wire was taking a somewhat cephalad course. Skin flaps were raised superiorly and inferiorly. The wire was delivered into the wound. Circumferential dissection was carried out around the wire. The amount of breast tissue resected was somewhat generous, because of her strong desire to avoid a second operation if possible, and even possibly avoid radiation therapy. Dissection was carried down to the posterior aspect of the breast tissue. The wire was not encountered during dissection. The breast tissue was dissected free, oriented with suture, and a specimen radiograph was obtained. 2 views of the tissue confirmed that the mammographic lesion and the clip had been successfully localized. The tissue was sent for permanent pathology, labeled as right breast tissue. Additional shave margins were obtained from the lateral aspect of the cavity, as well as the posterior aspect of the cavity. The specimens were resected separately, oriented with suture, and sent for permanent pathology. The cavity was marked with hemoclips circumferentially. The breast parenchyma was closed with interrupted 3-0 Vicryl sutures. A transverse incision was made at the inferior border of the hairbearing skin in the right axilla. Dissection was carried down with electrocautery through the subcutaneous tissue until the axillary fascia was incised. Using the gamma probe as a guide, the area of maximum radiotracer activity was identified. As this tissue was dissected free, it was apparent that it had focal methylene blue uptake as well. There was a single lymph node which was dissected free from the surrounding tissue using electrocautery. The ex vivo gamma count was 56. The background count in the right axilla was 2. The lymph node had blue dye uptake. It was sent for permanent pathology. Hemostasis was adequate. The axillary fascia was closed with a single 3-0 Vicryl suture. The skin incisions were both closed with running 4-0 Vicryl subcuticular stitches. Dermabond was applied to the skin as a dressing. At the end the case all needle and sponge counts were correct 2. The patient was awakened from anesthesia without difficulty, and taken to the recovery room in satisfactory condition, having tolerated the procedure well. Complications There were no periprocedural complications identified. Surgical Specimen Removed: Yes Specimen sent to Pathology: Yes Surgical Specimen description: Right breast tissue. Right axillary sentinel lymph node. Lateral breast margin. Posterior breast margin. Anesthetic Plan: GA Grafts, Implants: None Output, Estimated Blood Loss: 20 Blood Administration during armstrong: No Drains: None Catheters: None copies to: Bradly Shafer MD; Jackie Klein MD, Joshua D MD Sep 17, 2016 14:14
--- NOTE | 2016-09-17 15:07 | PCM.ANEP1 ---
Post Anesthesia Phase 1 PACU Phase 1 Assessment Date of Service: Sep 17, 2016 Vital Signs Vital Signs Date Time Temp Pulse Resp B/P Pulse Ox O2 Delivery O2 Flow Rate FiO2 09/17/16 15:00 91 16 125/81 99 Simple Mask 8 09/17/16 14:50 91 15 129/77 99 Simple Mask 8 09/17/16 14:35 36.1 93 15 128/70 99 Simple Mask 8 09/17/16 14:31 97 15 136/73 99 Simple Mask 8 09/17/16 14:25 102 10 172/92 100 Simple Mask 8 09/17/16 14:20 99 18 144/82 100 Simple Mask 8 09/17/16 14:15 36.4 99 18 141/79 100 Simple Mask 8 09/17/16 10:55 36.2 87 16 138/99 99 Room Air Level of Alertness: Awake, talking GEE's with Equal Strength: Yes Pain: No Nausea or Vomiting: No Airway Device: Oralpharangeal Airway Oxygen Delivery: Simple Mask Lungs: Clear to Auscultation, Normal Air Movement Dermatome Level: Full Sensation Complications: No Follow up Care: No Kwaku Rapp DO Sep 17, 2016 15:07
--- NOTE | 2016-09-17 15:29 | DRSVH ---
PROCEDURE: NM SENTINEL NODE INJECTION ONLY, RIGHT BREAST RADIOPHARMACEUTICAL: 0.514 mCi Millipore filtered Tc-99m sulfur colloid. INDICATIONS: right breast cancer PROCEDURE: The indications, alternatives, benefits, risks, and complications of the procedure were explained to the patient. Written informed consent was obtained and placed in the chart. The area around the nip ple was prepped and draped in a sterile fashion. Tc-99m sulfur colloid was injected in the outer edg e of the areola in the right breast. No image was obtained. IMPRESSION: Administration of radiotracer into the right breast periareolar region for intra-operati ve sentinel lymph node localization. Dictated by: Lynn Friedman MD, PhD on 09/17/2016 at 15:26 Approved by: Lynn Friedman MD, PhD on 09/17/2016 at 15:27
--- NOTE | 2016-09-20 07:28 | DRSVH ---
SPECIMEN RIGHT BREAST: 09/17/2016 CLINICAL: Breast specimen. Correlation is made to exams dated: 09/17/2016 localization, 08/18/2016 stereotactic biopsy, 05/25/2016 mammogram, 04/26/2016 mammogram - [facility], and 04/14/2015 mammogram - [facility]. A surgical specimen was imaged for the area of calcifications located in the right breast at 10 o'cl ock anterior depth. IMPRESSION: SPECIMEN The imaged specimen includes the calcifications, a biopsy clip, and the distal portion of the localiz ation wire. This exam was interpreted at Station ID: [id number]. Tyson hicks/:09/17/2016 15:02:21 Additional referring physicians: TORIE CHING GARY BLUGA
--- NOTE | 2016-09-21 14:25 | PATH ---
SURGICAL PATHOLOGY Attending Physician:Galo Sarah CASE STATUS: Signed Out PATIENT NAME: ELIANE GRIFFITHS PID: [id number] : 1950 DATE COLLECTED:09/17/2016 00:00 SPECIMEN: 1: Breast mass, oriented 2: [place] Lymph Node 3: Breast Margin 4: Breast Margin CLINICAL HISTORY: RIGHT BREAST CANCER 1). RIGHT BREAST TISSUE SHORT STITCH SUPERIOR; LONG STITCH LATERAL 2). RIGHT AXILLARY SENTINEL LYMPH NODE GAMMA COUNT NODE 56, BACKGROUND COUNT 2 3). LATERAL MARGIN STITCH SHORT SUPERIOR; STITCH LONG POSTERIOR 4). POSTERIOR MARGIN SHORT SUPERIOR; LONG - LATERAL FINAL DIAGNOSIS: 1.RIGHT BREAST TISSUE:CAP CANCER CASE SUMMARY PROCEDURE: LUMPECTOMY LYMPH NODE SAMPLING: SENTINEL NODES SPECIMEN LATERALITY: RIGHT TUMOR SITE: NOT SPECIFIED TUMOR SIZE: 3 MM HISTOLOGIC TYPE: INFILTRATING DUCTAL CARCINOMA HISTOLOGIC GRADE: RAJAT HISTOLOGIC SCORE Glandular/Tubular differentiation: Score 3 Nuclear Pleomorphism: Score 3 Mitotic Rate: Score 1 Overall Grade: Grade 2 TUMOR FOCALITY: SINGLE FOCUS DUCTAL CARCINOMA IN SITU: S Size (Extent) of DCIS: 5 MM Architectural patterns: CRIBRIFORM Nuclear grade: Grade HIGH Necrosis: PRESENT LOBULAR CARCINOMA IN SITU: NOT IDENTIFIED MACROSCOPIC AND MICROSCOPIC EXTENT OF TUMOR SKIN: UNINVOLVED NIPPLE: UNINVOLVED SKELETAL MUSCLE: UNINVOLVED MARGINS INVASIVE CARCINOMA: Anterior: 2 MM Posterior: 12 MM Superior: 23 MM Inferior: 14 MM Medial: 38 MM Lateral: 9 MM DUCTAL CARCINOMA IN SITU: Anterior: 2 MM Posterior: 12 MM Superior: 23 MM Inferior: 14 MM Medial: 38 MM Lateral: 9 MM LYMPH NODES Total number of lymph nodes examined: 1 Number of sentinel lymph nodes examined: 1 Lymph Node Involvement: Number of lymph nodes with macrometastases: 0 Number of lymph nodes with micrometastases: 0 Number of lymph nodes with isolated tumor cells: 0 TREATMENT EFFECT: Response to Presurgical Therapy Breast: NOT IDENTIFIED Lymph nodes: NOT IDENTIFIED LYMPH-VASCULAR INVASION: NOT IDENTIFIED DERMAL LYMPH-VASCULAR INVASION: NOT IDENTIFIED PATHOLOGIC STAGING: AJCC, 7th ed., 2010 PRIMARY TUMOR: pT1a REGIONAL LYMPH NODES: pN0 (sentinel) ANCILLARY STUDIES: Biomarkers Performed Previously on Case: SITE NOT IDENTIFIED Estrogen Receptor (ER) Status: POSITIVE, GREATER THAN 95% Progesterone Receptor (PgR) Status: POSITIVE, GREATER THAN 80% HER2 (by immunohistochemistry): NOT AMPLIFIED 2.SENTINEL LYMPH NODE: ONE LYMPH NODE WITH NO EVIDENCE OF MALIGNANCY. 3.LATERAL MARGIN: NEGATIVE FOR INFILTRATING CARCINOMA AND DUCTAL CARCINOMA IN SITU. 4.POSTERIOR MARGIN: NEGATIVE FOR INFILTRATING CARCINOMA AND DUCTAL CARCINOMA IN SITU. ICD10 code C50.9 GROSS DESCRIPTION: The specimens are received in formalin, labeled with the patient's name, and sublabeled as the following: (1) right breast tissue; (2) right axillary sentinel lymph node; (3) lateral margin; (4) posterior margin. (1) The specimen consists of a piece of breast tissue (3.8 cm in AP, 6.0 cm SI, 7.2 cm ML) with no overlying skin. The specimen is oriented with 2 black sutures (short-superior, long-lateral). A localization wire is present. The specimen is serially sectioned ML into 22 slices with the medial and lateral resection margins as slices #1 and #22 respectively. The breast tissue is fatty and contains a murray white and yellow solid firm irregular mass (2.5 x 1.6 x 1.2 cm) with a cystic center containing clear colorless hemorrhagic gelatinous material. The mass is within slices #12-#19 and is 0.2 cm from the anterior, 1.2 cm from the posterior, 2.3 cm from the superior, 1.4 cm from the inferior, 3.8 cm from the medial, and 0.9 cm from the lateral resection margins. No other nodules, masses or lesions are identified. Please note that the inked code is not per the usual code. Ink code: yellow-anterior; purple-posterior; black-superior; orange-inferior; green-medial; blue-lateral. Section code: (1A) medial resection margin, perpendicularly sectioned, correspondence representative; (1B) slice #4, fibrous tissue, correspondence representative; (1C) slice #5, fibrous tissue, correspondence representative; (1D) slice #7, fibrous tissue, correspondence representative; (1E-1F) slice #11, tissue adjacent to mass, correspondence representative bisected and submitted SI; (1G) slice #12, correspondence representative; (1H) slice #13, correspondence representative; (1I) slice #14, correspondence representative; (1J-1M) slice #15, quartered and, entirely submitted; (1N) slice #16, correspondence representative; (1O) slice #17, correspondence representative; (1P) slice #18, correspondence representative; (1Q) slice #19, correspondence representative; (1R-1S) slice #20, tissue adjacent to mass, bisected, entirely submitted; (1T) lateral resection margin, perpendicularly sectioned, correspondence representative. (2) The specimen consists of a blue stained lymph node (1.4 x 1.2 x 0.5 cm). Section code: (2A) one lymph node, serially sectioned. Specimen entirely submitted. (3) The specimen consists of a piece of breast tissue (2.8 cm AP, 4.6 cm SI, 0.7 cm ML) with no overlying skin. The specimen is oriented with 2 black sutures (short-superior, long-posterior). The breast tissue is fatty, focally fibrous and contains a murray yellow solid firm round well-circumscribed nodule (0.1 cm) located 0.1 cm from the lateral resection margin. No other nodules, masses or lesions are identified. Ink code: purple-anterior; yellow-posterior; black-superior; orange-inferior; green-medial; blue-lateral. Section code: (3A-3K) breast tissue, serially sectioned and submitted SI, nodule in cassette 3C. Specimen entirely submitted. (4) The specimen consists of a piece of breast tissue (0.7 cm AP, 4.5 cm SI, 3.3 cm ML) with no overlying skin. The specimen is oriented with 2 black sutures (short-superior, long past lateral). The breast tissue is fatty with no nodules, masses or lesions identified.Please note that the inked code is not per the usual code. Ink code: yellow-anterior; purple-posterior; black-superior; orange-inferior; green-medial; blue-lateral. Section code: (4A-4F) breast tissue, serially sectioned and submitted IS. Specimen entirely submitted. Note: Approximate total fixation time in formalin-47 hours than 45 minutes using a collection date of September 17, 2016 with a time in the fixative of 1348. 09/18/16 JM MICRO DESCRIPTION: 1. A single focus of infiltrating carcinoma, measuring 3 mm in maximum dimension is adjacent to a focus of ductal carcinoma in situ. Immunocytochemistry is done to characterize the focus of infiltrating carcinoma. Sections, along with appropriate controls, are incubated with antibodies to P63 and Myosin heavy chain. The foci of infiltrating carcinoma lack investment by myoepithelial cells, while the focus of DCIS demonstrates myoepithelial cells. This test was developed and its performance characteristics determined by [facility]. It has not been cleared or approved by the [place]. Food and Drug Administration. The FDA has determined that such clearance or approval is not necessary. This test is used for clinical purposes. It should not be regarded as investigational or for research. ICD-9 CODES: CPT CODES: 1: 57424, 83866 2: 44805 3: 26712 4: 37293 Electronically Signed Out Benito Mayen MD [facility]ly [facility] Pathology [facility] [address], [place] [address] Technical component performed at [facility], [address], [place], [address]
== END 2016-09-17 23:59 | disposition home or self-care (01) ==
LOC: SAS 10:34
PROVIDERS: ATTEND Student in an Organized Health Care Education/Training Program
DX: C50.411 Malignant neoplasm of upper-outer quadrant of right female breast (principal); I12.9 Hypertensive chronic kidney disease with stage 1 through stage 4 chronic kidney disease, or unspecified chronic kidney disease; N18.3 Chronic kidney disease, stage 3 (moderate); R62.50 Unspecified lack of expected normal physiological development in childhood; E03.9 Hypothyroidism, unspecified; M54.5 Low back pain; B18.2 Chronic viral hepatitis C; F20.9 Schizophrenia, unspecified; E78.00 Pure hypercholesterolemia, unspecified; J30.2 Other seasonal allergic rhinitis; F63.9 Impulse disorder, unspecified; M41.119 Juvenile idiopathic scoliosis, site unspecified; Z79.890 Hormone replacement therapy; Z17.0 Estrogen receptor positive status [ER+]
CPT/HCPCS: 19301; 38525; 38792; 76098; A9541; J1100; J1885; J2250; J2405; J2765; J3010; J7120